=== PATIENT | female | born 1935 | race Caucasian/White ===

== ENCOUNTER 2017-09-25 14:20 | Emergency (ER) | payer MEDICARE ==
[2017-09-25 15:24] LABS: Bilirubin Negative (Negative); Blood, Urine Negative (Negative); Clarity CLEAR (Clear); Glucose, Urine (Dipstick) Negative (Negative); Leukocyte Negative (Negative); Nitrite Negative (Negative); Protein, Urine (Dipstick) Negative (Neg-Trace); Specific Gravity, Urine 1.013 (1.002-1.036); Urobilinogen 0.2 mg/dL (0.2-1.0)
--- NOTE | 2017-09-25 15:53 | RAD ---
PORTABLE CHEST ONE VIEW: 09/25/2017 at 2:47 p.m. HISTORY: Altered mental status. FINDINGS: Comparison is made with the exam of 04/03/2017. The heart size is normal. The aorta is tortuous. The lungs are expanded without focal areas of cons olidation, pneumothorax, lia pleural edema, or pleural effusions. IMPRESSION: No acute process. POS: [facility]
[2017-09-25 16:04] LABS: #Eosinphils 0.1 thou/uL (0.0-0.7); #Lymphocytes 1.8 thou/uL (1.20-3.40); #Monocytes 0.4 thou/uL (0.11-0.59); %Basophils 0.2 % (0.0-1.0); %Eosinophils 1.8 % (0.0-10.0); %Lymphocytes 27.9 % (21.0-51.0); %Neutrophils 63.1 % (42.0-75.0); Hemoglobin 14.2 g/dL (12.0-16.0); Mean Corpuscular HGB CONC 33.6 g/dL (32.0-36.0); Mean Corpuscular Volume 89.4 fl (81.0-99.0); Mean Platelet Volume 8.6 fL (7.4-10.4); Platelet Count 151 thou/uL (130-400); RBC Distribution Width 12.6 % (11.5-14.5); Red Blood Cell (RBC) Count 4.75 mill/uL (4.20-5.40); White Blood Cell (WBC) Count 6.3 thou/uL (4.8-10.8)
[2017-09-25 16:23] LABS: ALT (SGPT) Less than 7 U/L (8-55); AST (SGOT) 14 U/L (5-34); Albumin 4.2 g/dL (3.4-4.8); Alkaline Phosphatase 90 U/L (40-150); Anion Gap 15 mmol/L (10-20); BUN (Urea Nitrogen) 15 mg/dL (9.8-20.1); Bilirubin, Total 0.6 mg/dL (0.2-1.2); CK (CPK) 52 U/L (29-168); Calc. Creatinine Clearance 0 mL/min (70-130); Calcium 10.2 mg/dL (7.8-10.44); Carbon Dioxide 24 mmol/L (23-31); Chloride 106 mmol/L (98-107); Estimated GFR-MDRD 66; Glucose 86 mg/dL (83-110); Lipase 13 U/L (8-78); Potassium 3.4 mmol/L (3.5-5.1); Protein, Total 7.2 g/dL (6.0-8.3); Sodium 142 mmol/L (136-145)
[2017-09-25 16:26] LABS: CKMB 1.1 ng/mL (0-6.6); Troponin I 0.025 ng/mL (< 0.028)
== END 2017-09-25 18:30 | disposition home or self-care (01) ==
LOC: ERS 14:20
DX: R53.83 Other fatigue (principal); I50.9 Heart failure, unspecified; E03.9 Hypothyroidism, unspecified; F41.9 Anxiety disorder, unspecified; G20 Parkinson's disease; Z86.73 Personal history of transient ischemic attack (TIA), and cerebral infarction without residual deficits
CPT/HCPCS: 36415; 71010; 80053; 81003; 82550; 82553; 83690; 83735; 84443; 84484; 85025; 87040; 87086; 93005

== ENCOUNTER 2017-12-03 09:47 | Emergency (ER) | payer MEDICARE ==
[2017-12-03 10:58] LABS: #Basophils 0.1 thou/uL (0.0-0.2); #Eosinphils 0.1 thou/uL (0.0-0.7); #Lymphocytes 1.6 thou/uL (1.20-3.40); #Monocytes 0.5 thou/uL (0.11-0.59); #Neutrophils 6.5 thou/uL (1.40-6.50); %Basophils 0.9 % (0.0-1.0); %Eosinophils 1.5 % (0.0-10.0); %Lymphocytes 17.9 % (21.0-51.0); %Monocytes 5.3 % (0.0-10.0); %Neutrophils 74.5 % (42.0-75.0); Hemoglobin 13.6 g/dL (12.0-16.0); Mean Corpuscular HGB CONC 31.9 g/dL (32.0-36.0); Mean Corpuscular Hemoglobin 27.7 pg (27.0-31.0); Mean Corpuscular Volume 86.9 fl (81.0-99.0); Mean Platelet Volume 10.2 fL (7.4-10.4); Platelet Count 179 thou/uL (130-400); RBC Distribution Width 14.2 % (11.5-14.5); Red Blood Cell (RBC) Count 4.91 mill/uL (4.20-5.40); White Blood Cell (WBC) Count 8.7 thou/uL (4.8-10.8)
[2017-12-03 11:06] LABS: ALT (SGPT) Less than 6 U/L (8-55); AST (SGOT) 13 U/L (5-34); Alkaline Phosphatase 83 U/L (40-150); Anion Gap 14 mmol/L (10-20); BUN (Urea Nitrogen) 23 mg/dL (9.8-20.1); Bilirubin, Total 0.5 mg/dL (0.2-1.2); CK (CPK) 42 U/L (29-168); CKMB 0.8 ng/mL (0-6.6); Calc. Creatinine Clearance 0 mL/min (70-130); Calcium 9.8 mg/dL (7.8-10.44); Carbon Dioxide 28 mmol/L (23-31); Chloride 105 mmol/L (98-107); Estimated GFR-MDRD 49; Glucose 107 mg/dL (83-110); Lipase 14 U/L (8-78); Potassium 4.3 mmol/L (3.5-5.1); Sodium 143 mmol/L (136-145); Troponin I Less than 0.010 ng/mL (< 0.028)
[2017-12-03 11:12] LABS: Bilirubin Negative (Negative); Blood, Urine Large (Negative); Clarity Slightly Cloudy (Clear); Glucose, Urine (Dipstick) Negative (Negative); Leukocyte Moderate (Negative); Nitrite Negative (Negative); Protein, Urine (Dipstick) > or equal to 300 mg/dL (Neg-Trace); Specific Gravity, Urine 1.025 (1.002-1.036)
[2017-12-03 11:13] LABS: WBC/HPF 21-50 HPF (0-3)
[2017-12-03 11:14] LABS: Bacteria/HPF Rare-Few HPF (None Seen); Other Microscopic Description Less than 2 mL rec'd; Squamous Epithelial None Seen HPF (0-3)
[2017-12-03] MEDS ORDERED: cefTRIAXone\\ROCEPHIN 1 GM VIAL ONE (11:29)
[2017-12-03] MEDS ORDERED: Lidocaine 1% PF 5 ML VIAL ONE (11:31)
== END 2017-12-03 12:15 | disposition home or self-care (01) ==
LOC: SCSER 09:47
DX: N39.0 Urinary tract infection, site not specified (principal); E03.9 Hypothyroidism, unspecified; Z86.73 Personal history of transient ischemic attack (TIA), and cerebral infarction without residual deficits; I50.9 Heart failure, unspecified; F41.9 Anxiety disorder, unspecified; Z79.899 Other long term (current) drug therapy
CPT/HCPCS: 36415; 51701; 80053; 81003; 81015; 82550; 82553; 83690; 84484; 85025; 87077; 87086; 87186; 93005; 96372; J0696; J2001

== ENCOUNTER 2018-01-12 15:07 | Outpatient (CLI) | payer MEDICARE ==
--- NOTE | 2018-01-12 17:09 | ULT ---
LEFT LOWER EXTREMITY VENOUS DUPLEX ULTRASOUND INCLUDING COLOR AND SPECTRAL DOPPLER IMAGIN01/12/18 HISTORY: 82-year-old female with history of lower leg edema. Exam performed from groin to ankle including visualized greater saphenous, common femoral, superficia l femoral, profunda femoral, popliteal, trifurcation, and posterior tibial vein regions. There is pha sic flow at all levels with normal compressibility and normal augmentation. No intraluminal thrombus. IMPRESSION: No evidence of deep venous thrombosis. POS: [facility]
== END 2018-01-12 15:08 | disposition home or self-care (01) ==
LOC: ULT 15:07
PROVIDERS: ATTEND Student in an Organized Health Care Education/Training Program
DX: R60.0 Localized edema (principal)

== ENCOUNTER 2018-05-16 16:58 | Observation (INO) | payer MEDICARE ==
[2018-05-16 17:24] LABS: #Basophils 0.1 thou/uL (0.0-0.2); #Eosinphils 0.1 thou/uL (0.0-0.7); #Lymphocytes 1.5 thou/uL (1.20-3.40); #Monocytes 0.3 thou/uL (0.11-0.59); #Neutrophils 3.5 thou/uL (1.40-6.50); %Basophils 0.9 % (0.0-1.0); %Eosinophils 1.5 % (0.0-10.0); %Lymphocytes 27.7 % (21.0-51.0); %Monocytes 5.8 % (0.0-10.0); %Neutrophils 64.1 % (42.0-75.0); Hemoglobin 13.4 g/dL (12.0-16.0); Mean Corpuscular HGB CONC 33.6 g/dL (32.0-36.0); Mean Corpuscular Hemoglobin 29.4 pg (27.0-31.0); Mean Corpuscular Volume 87.6 fL (78.0-98.0); Mean Platelet Volume 8.5 fL (7.4-10.4); Platelet Count 146 thou/uL (130-400); RBC Distribution Width 12.8 % (11.5-14.5); Red Blood Cell (RBC) Count 4.56 mill/uL (4.20-5.40); White Blood Cell (WBC) Count 5.5 thou/uL (4.8-10.8)
[2018-05-16 17:46] LABS: ALT (SGPT) 14 U/L (8-55); AST (SGOT) 17 U/L (5-34); Albumin 4.1 g/dL (3.4-4.8); Alkaline Phosphatase 89 U/L (40-150); Anion Gap 11 mmol/L (10-20); BUN (Urea Nitrogen) 14 mg/dL (9.8-20.1); Bilirubin, Total 0.5 mg/dL (0.2-1.2); CK (CPK) 58 U/L (29-168); Calc. Creatinine Clearance 0 mL/min (70-130); Calcium 9.8 mg/dL (7.8-10.44); Carbon Dioxide 25 mmol/L (23-31); Chloride 109 mmol/L (98-107); Estimated GFR-MDRD 36; Globulin 2.9 g/dL (2.4-3.5); Glucose 99 mg/dL (83-110); Lipase 20 U/L (8-78); Potassium 4.1 mmol/L (3.5-5.1); Sodium 141 mmol/L (136-145)
--- NOTE | 2018-05-16 17:49 | RAD ---
CHEST ONE VIEW: HISTORY: Dyspnea. COMPARISON: Chest radiograph from 09/25/2017. FINDINGS: Some chronic appearing interstitial opacities in both lung bases. The cardiac silhouette and mediast inal contour are within normal limits. No pneumothorax. Scarring on both lung apices. No acute oss eous abnormality. IMPRESSION: Chronic changes. No acute intrathoracic abnormality. POS: [facility]
[2018-05-16 17:50] LABS: CKMB 1.3 ng/mL (0-6.6); Troponin I Less than 0.010 ng/mL (< 0.028)
[2018-05-16 19:19] LABS: Bilirubin Negative (Negative); Blood, Urine Negative (Negative); Clarity CLEAR (Clear); Glucose, Urine (Dipstick) Negative (Negative); Leukocyte Moderate (Negative); Nitrite Negative (Negative); Protein, Urine (Dipstick) Negative (Neg-Trace); Specific Gravity, Urine 1.012 (1.002-1.036); pH, Urine 7.5 (5.0-9.0)
[2018-05-16 19:23] LABS: Bacteria/HPF None Seen HPF (None Seen); Hyaline Casts/LPF 0-3 HYALINE CAST LPF (0-3 Hyaline); Pathc Cast-AUWi Flag 0.72 (0-2.49); RBC/HPF 0-3 HPF (0-3); Squamous Epithelial 0-3 HPF (0-3); WBC/HPF 21-50 HPF (0-3)
[2018-05-16] MEDS ORDERED: hydrALAZINE 20 MG/ML VIAL ONE (19:24)
[2018-05-16] MEDS ORDERED: Nitroglycerin 2% Ointment 1 INCH/1 GM Packet ONE (19:26)
[2018-05-16] MEDS ORDERED: cefTRIAXone\\ROCEPHIN 1 GM VIAL ONE (19:41)
[2018-05-16] MEDS ORDERED: Ondansetron HCl/PF 4 MG/2 ML Vial IVP PRN (20:47)
[2018-05-16] MEDS ORDERED: Ondansetron ODT 4 MG TAB SL PRN (20:47)
[2018-05-16] MEDS ORDERED: hydrALAZINE 20 MG/ML VIAL SLOW IVP PRN (20:47)
[2018-05-16] MEDS ORDERED: Sodium Chloride 0.9% 1,000 ML IV SCH (20:47)
[2018-05-16 20:49] LABS: Troponin I Less than 0.010 ng/mL (< 0.028)
--- NOTE | 2018-05-16 20:53 | CT ---
CT BRAIN WITHOUT CONTRAST: HISTORY: Altered mental status. COMPARISON: CT brain from 03/21/2017. FINDINGS: Advanced microvascular ischemic changes, chronic. Old lacunar infarcts. No acute hemorrhage or infa rct. No midline shift or mass effect. Ventricular size and extraaxial CSF spaces are similar. Mild atrophy. IMPRESSION: No acute intracranial abnormality. POS: [facility]
--- NOTE | 2018-05-16 21:13 | PDOC.FPRHP ---
- History of Present Illness Chief Complaint: SOB History of Present Illness: Ms. Mojica is a 82YO female with a PMH significant for CHF w/ preserved EF, HTN, HLD, & hypothyroidism who presented to the ED with a chief complaint of SOB that she states began around midnight on the day of presentation. She states that it began while she was sitting in her home and is not exacerbated with activity or position change. She states that since it began it has been constant and gotten progressively worse. She denies any associated chest pain, orthopnea, PND, fever, or cough. She did endorse some chills and some swelling in her ankles. Per chart review her last echo was done in 2017 and was significant for grade I diastolic dysfunction with an EF of 50- 55%. Of note, the patient also reported that she could not remember what day it was when she woke up so did not take any of her home medications. However, on further questioning, it was later revealed that it has been 4 days since she took any of her home medications. She was oriented to place and person and knew the year. Did not know the month, date, or day of the week. She also endorsed urinary frequency but denied any dysuria or hematuria. She stated that she has been treated for multiple UTIs on an outpatient basis in the recent past. ED Course: Patient was given one dose of IV hydralazine and nitro paste for hypertensive urgency. In addition, she was given one IV dose of rocephin & started on NS @ 70mL/hr. - Allergies/Adverse Reactions Allergies Allergy/AdvReac Type Severity Reaction Status Date / Time codeine [Codeine] Allergy Mild CHEST PAIN Verified 05/16/18 21:16 - Home Medications Medication Instructions Recorded Confirmed Type Aspirin [Aspir-Low] 81 mg PO QAM 03/22/17 05/16/18 History Calcium Carbonate/Vitamin D3 1 tablet PO QAM 03/22/17 05/16/18 History [Calcium 600 + Vitamin D 400] Carbidopa/Levodopa 1 tablet PO TID 03/22/17 05/16/18 History [Carbidopa/Levodopa ODT] Cholecalciferol (Vitamin D3) 1,000 unit PO QAM 03/22/17 05/16/18 History [Vitamin D3] DULoxetine HCl 60 mg PO QAM 03/22/17 05/16/18 History Levothyroxine Sodium [Synthroid] 112 mcg PO QAM 03/22/17 05/16/18 History Pregabalin [Lyrica] 100 mg PO TID 03/22/17 05/16/18 History Pramipexole Di-HCl [Pramipexole 0.5 mg PO TID 07/29/17 05/16/18 History Dihydrochloride] Pravastatin Sodium 40 mg PO HS 07/29/17 05/16/18 History Lisinopril [Zestril] 10 mg PO DAILY tab 08/01/17 05/16/18 Rx Furosemide 20 mg PO DAILY 05/16/18 05/16/18 History Nystatin [Nystatin Powder] 1 applic TOP BID 05/16/18 05/16/18 History - History PMHx: CHF w/ preserved EF, HTN, HLD, parkinson's, hypothyroidism, restless leg syndrome, anxiety, h/o CVA 20 years ago PSHx: allegra, hysterectomy FHx: None Social: Lives at home alone. No tobacco, EtOH, or drug use. - Review of Systems General: reports: fever/chills (+ for chills). denies: weight/appetite/sleep changes Eyes: denies: vision changes ENT: reports: rhinorrhea Respiratory: reports: shortness of breath. denies: cough Cardiovascular: reports: edema. denies: chest pain, palpitation, paroxysmal nocturnal dyspnea, orthopnea Gastrointestinal: denies: nausea, vomiting, diarrhea, constipation, abdominal pain Genitourinary: reports: other (+ frequency, - hematuria). denies: dysuria Skin: reports: itching. denies: rashes Musculoskeletal: reports: swelling. denies: pain, arthritis/arthralgias Neurological: denies: numbness, syncope, weakness Psychological: reports: anxiety - Vital signs BP: 188/108 HR: 58 RR: 18 Tmax: 97.7F Pox: 96% on 2L via nasal canula Wt: 74kg - Physical Exam Constitutional: NAD, awake, alert and oriented, well developed HEENT: normocephalic and atraumatic, PERRLA, conjunctiva clear, grossly normal vision, grossly normal hearing, oropharynx clear Neck: FROM, no LAD Heart: RRR, normal S1/S2, no murmurs/rubs/gallops, pulses present, no edema Lungs: CTAB, no respiratory distress, good air movement, no rales/rhonchi, no wheezing Abdomen: soft, bowel sounds present, no masses/distention, other (+ for suprapubic tenderness) Musculoskeletal: normal structure, ROM grossly normal Neurological: no focal deficit, CN II-XII intact, normal sensation Skin: no rash/lesions, good turgor, no jaundice Heme/Lymphatic: no unusual bruising or bleeding, no purpura Psychiatric: other (anxious affect with mild impairment in recent and remote memory) FMR H&P: Results - Labs Result Diagrams: 05/16/18 17:15 05/17/18 03:42 Lab results: WBC 5.5 thou/uL (4.8-10.8) 05/16/18 17:15 Hgb 13.4 g/dL (12.0-16.0) 05/16/18 17:15 Hct 39.9 % (36.0-47.0) 05/16/18 17:15 MCV 87.6 fL (78.0-98.0) 05/16/18 17:15 Plt Count 146 thou/uL (130-400) 05/16/18 17:15 Neutrophils % 64.1 % (42.0-75.0) 05/16/18 17:15 Sodium 141 mmol/L (136-145) 05/16/18 17:15 Potassium 4.1 mmol/L (3.5-5.1) 05/16/18 17:15 Chloride 109 mmol/L (98-107) H 05/16/18 17:15 Carbon Dioxide 25 mmol/L (23-31) 05/16/18 17:15 BUN 14 mg/dL (9.8-20.1) 05/16/18 17:15 Creatinine 1.41 mg/dL (0.6-1.1) H 05/16/18 17:15 Glucose 99 mg/dL (83-110) 05/16/18 17:15 Calcium 9.8 mg/dL (7.8-10.44) 05/16/18 17:15 Total Bilirubin 0.5 mg/dL (0.2-1.2) 05/16/18 17:15 AST 17 U/L (5-34) 05/16/18 17:15 ALT 14 U/L (8-55) 05/16/18 17:15 Alkaline Phosphatase 89 U/L (40-150) 05/16/18 17:15 Creatine Kinase 58 U/L (29-168) 05/16/18 17:15 CK-MB (CK-2) 1.3 ng/mL (0-6.6) 05/16/18 17:15 B-Natriuretic Peptide 93.8 pg/mL (0-100) 05/16/18 17:15 Serum Total Protein 7.0 g/dL (6.0-8.3) 05/16/18 17:15 Albumin 4.1 g/dL (3.4-4.8) 05/16/18 17:15 Lipase 20 U/L (8-78) 05/16/18 17:15 Urine Ketones Negative mg/dL (Negative) 05/16/18 19:00 Urine Blood Negative (Negative) 05/16/18 19:00 Urine Nitrite Negative (Negative) 05/16/18 19:00 Ur Leukocyte Esterase Moderate (Negative) H 05/16/18 19:00 Urine RBC 0-3 HPF (0-3) 05/16/18 19:00 Urine WBC 21-50 HPF (0-3) H 05/16/18 19:00 Ur Squamous Epith Cells 0-3 HPF (0-3) 05/16/18 19:00 Urine Bacteria None Seen HPF (None Seen) 05/16/18 19:00 - EKG Interpretation EKG: NSR - Radiology Interpretation Chest x-ray Status: report reviewed by me (WNL) CT scan - head Status: report reviewed by me (No acute changes) FMR H&P: A/P - Problem List (1) Hypertensive urgency Current Visit: Yes Status: Acute Code(s): I16.0 - HYPERTENSIVE URGENCY (2) Urinary tract infection Current Visit: Yes Status: Acute (3) ZORAIDA (acute kidney injury) Current Visit: Yes Status: Acute Code(s): N17.9 - ACUTE KIDNEY FAILURE, UNSPECIFIED (4) Hypertension Current Visit: Yes Status: Chronic Code(s): I10 - ESSENTIAL (PRIMARY) HYPERTENSION (5) Hyperlipidemia Current Visit: Yes Status: Chronic Code(s): E78.5 - HYPERLIPIDEMIA, UNSPECIFIED (6) Diastolic congestive heart failure Current Visit: No Status: Acute Code(s): I50.30 - UNSPECIFIED DIASTOLIC ( CONGESTIVE) HEART FAILURE (7) Hypothyroid Current Visit: Yes Status: Chronic Code(s): E03.9 - HYPOTHYROIDISM, UNSPECIFIED Qualifiers: Hypothyroidism type: acquired Qualified Code(s): E03.9 - Hypothyroidism, unspecified (8) Parkinson disease Current Visit: Yes Status: Chronic Code(s): G20 - PARKINSON'S DISEASE (9) Restless leg syndrome Current Visit: Yes Status: Chronic (10) Anxiety Current Visit: Yes Status: Chronic Code(s): F41.9 - ANXIETY DISORDER, UNSPECIFIED - Plan 82YOF w/ a PMH significant for CHF w/ preserved EF, HTN, HLD, and hypothyroidism who presented to the ED with a chief complaint of progressively worsening SOB x 1 day. 1. Hypertensive Urgency: - BP was 188/108 on presentation. Likely 2/2 medication noncompliance per history. - Patient was given 10mg IV hydralazine in the ED and a dose of topical nitropaste & responded nicely. - Will continue to monitor BPs and resume home medications for BP control. Will also continue hydralazine PRN. 2. General deconditioning: - Patient states that she is mobile at home but per chart review has a history of deconditioning and falls. Could likely explain her SOB with exertion. - PT consult ordered. Will await their recs. 3. ZORAIDA: - BUN/Cr 14/1.41 on presentation. - Will continue with gentle IVFs with NS @ 70mL/hr. 4. UTI: - UA not impressive with mod leukocyte esterase & 21-50 WBCs. However, patient did complain of frequency & had suprapubic tenderness on exam. - Got one dose of rocephin in the ED. Will continue & adjust Abx as needed pending Cx results. 5. CHF w/ preserved EF: - Aware. Does not appear to be in acute exacerbation. BNP 93.8. Satting well on RA & CXR negative for effusions. - Will resume home meds. 6. Hypothyroidism: - Aware. Will resume home meds. - Will check a TSH to determine compliance as this could also be contributing to her confusion. 7. Parkinson's disease: - Aware, will resume home meds. 8. HTN: - See problem #1. 9. HLD: - Will resume home meds. 10. Anxiety: - Will resume home meds. 11. Restless leg syndrome: - Will resume home meds. 12. h/o CVA: - Aware, will resume home meds. FMR H&P: Upper Level - Pertinent history Patient is an 82 year old female who presents to the ED with a chief complaint of shortness of breath since midnight. Occurred at rest. She denies any change in activity of provoking factors. She denies chest pain, cough, or decrease in exercise tolerance. She has a history of diastolic heart failure (Last echo clinic chart - EF 50-55% with Grade 1 diastolic dysfunction). She reports peripheral edema.Pt had relatively negative workup in ED, however as they were preparing to discharge her from the ED, pt apparently had difficulty walking and "became" confused, so admission was recommended. On further questioning of the patient, she does report being more confused lately and has not taken her medications in at least four days. - Pertinent findings Vitals: BP 172/101 P: 62 RR: 20 SpO2: 100% on RA Physical Exam: General: alert and oriented to person, place and time. No apparent distress. Blunted affect. Heart: regular rate and rhythm, no murmurs, rubs, or gallops. Lungs. Clear to auscultation bilaterally. Extremities: moves all extremites well; normal bulk and tone. BNP - 93.8 CKMB - 1.3, Trop < 0.01 CK: 58 Lipase: 20 BUN: 14: Cr: 1.41 D-dimer: 0.36 CT brain: no acute intracranial abnormality. CXR: no acute cardiopulmonary abnormality. - Plan Date/Time: 05/16/182104 IPriya, have evaluated this patient and agree with findings/plan as outlined by commercial internship resident. Pertinent changes/additions are listed here. Hypertensive urgency - patient admitted to telemetry for observation. - Blood pressure has improved with dose of hydralazine given in ED. - will resume patient's home antihypertensive. - Otherwise, no need for acute reductions in blood pressure at this time. Dyspnea - uncertain etiology, possibly related to flash pulmonary edema vs. deconditioning vs. decompensated heart failure. - CXR negative. - will repeat echo. - will order PT for evaluation of pt's functional status. She may need PT at home. Acute Encephalopathy - possibly secondary to urinary tract infection given suprapubic tenderness on exam. Will obtain urine culture. Heart failure with preserved ejection fraction - continue home medication. - will repeat Echo Parkinson's Disease - Resume home medications. Restless leg syndrome - resume home medications Hypothyroidism - will check TSH, and resume home meds. Hyperlipidemia - resume home meds. DVT prophylaxis: SCDs
[2018-05-16 21:18] VITALS: BMI 28.9
[2018-05-16] MEDS ORDERED: Hydrocortisone 1% Cream 1.5 GM Packet TOP PRN (21:52)
--- NOTE | 2018-05-16 23:31 | PDOC.EVN ---
Event Note - Event Note Event Note: 82 yo WF with h/o Parkinson's, HTN, HLD, hypothyroidism, HFrEF presented with c/ o SOB x 1 day. Patient states taht she has felt confused and disoirented for last several days and then developed SOB today. Denies any fever, CP, cough,. (+ ) urinary frequency. Denies any dysuria. IN ER noted to have elevated BP. ( Patient reports that she has not taken her medications for last 3-4 days per nurse). PMH/PSH/Meds/All/SH reviewed and agree with resident's documentation. Afebrile BP 176/78 P69 RR20 O2 96% 2LNC. Exam repeated by me and agree with resident's documentation. Labs: H/H 13.4/39.9 Cr=1.41 trop I<0.010 x2, U/A moderate LE; 21-[address] brain- no acute findings, CXR- no acute changes. A/P : 1) SOB- now resolved with normal O2 saturations. 2) Pyuria- patient reports h/ o UTIs. Urine culture sent; will review office history/labs. 3) Hypertensive urgency - patient had not taken meds for last 3-4 days; resume home meds and will evaluate social situation.
[2018-05-16] MEDS ORDERED: Melatonin 3 MG TAB PO PRN (23:59)
[2018-05-17] MEDS ORDERED: Doxepin HCl 10 MG CAP PO PRN (00:01)
[2018-05-17 00:10] LABS: Troponin I Less than 0.010 ng/mL (< 0.028)
[2018-05-17] MEDS ORDERED: Nystatin Powder 15 GM BOT TOP PRN (00:49)
[2018-05-17 04:47] LABS: Anion Gap 14 mmol/L (10-20); BUN (Urea Nitrogen) 12 mg/dL (9.8-20.1); Calc. Creatinine Clearance 56 mL/min (70-130); Carbon Dioxide 23 mmol/L (23-31); Chloride 110 mmol/L (98-107); Estimated GFR-MDRD 61; Glucose 100 mg/dL (83-110); Potassium 3.6 mmol/L (3.5-5.1); Sodium 143 mmol/L (136-145)
[2018-05-17] MEDS ORDERED: Levothyroxine Sodium 112 MCG TAB PO SCH (06:00)
[2018-05-17] MEDS: DULoxetine 60 MG CAP PO SCH (09:06)
[2018-05-17] MEDS: Calcium Carbonate + Vit D 1 TAB PO SCH (09:06)
[2018-05-17] MEDS: Aspirin 81 mg Enteric Coated Tablet PO SCH (09:06)
[2018-05-17] MEDS: Carbidopa/Levodopa 25-100 mg Tablet PO SCH ×3 (09:06→21:01)
[2018-05-17] MEDS: Pramipexole Di-HCl 0.25 MG TAB PO SCH ×3 (09:07→21:01)
[2018-05-17] MEDS: Lisinopril 10 MG TAB PO SCH (09:07)
[2018-05-17] MEDS: Furosemide 20 MG TAB PO SCH (09:07)
[2018-05-17] MEDS: Pregabalin 50 MG CAP PO SCH ×3 (09:07→21:00)
[2018-05-17] MEDS ORDERED: Ondansetron ODT 4 MG TAB SL PRN (13:24)
--- NOTE | 2018-05-17 13:25 | PDOC.FM ---
- Subjective Subjective: States that she feels weak overall and short of breath. Also states that she feels short of breath most of the time with small tasks of cooking and walking from room to room. States that her daughter upset her and made her very anxious which then made her more short of breath and prompted her visit to the ER. - Objective Vital Signs & Weight: Vital Signs (12 hours) Temp Pulse Resp BP BP Pulse Ox 05/17/18 11:31 98.6 F 77 18 146/71 H 92 L 05/17/18 07:35 97.7 F 73 18 151/72 H 94 L 05/17/18 04:00 97.8 F 82 20 144/71 H 93 L Weight Weight 74.026 kg Result Diagrams: 05/16/18 17:15 05/17/18 03:42 <Ann-Marie Henry - Last Filed: 05/17/18 20:48> - Objective Vital Signs & Weight: Vital Signs (12 hours) Temp Pulse Pulse Pulse Resp BP BP 05/17/18 19:31 98.3 F 70 20 05/17/18 15:17 98 F 80 18 124/66 05/17/18 14:04 81 83 127/67 05/17/18 11:31 98.6 F 77 18 146/71 H BP BP Pulse Ox Pulse Ox Pulse Ox 05/17/18 19:31 110/60 94 L 05/17/18 15:17 92 L 05/17/18 14:04 133/69 96 98 05/17/18 11:31 92 L Weight Weight 74.026 kg I&O: 05/16/18 05/17/18 05/18/18 06:59 06:59 06:59 Intake Total 450 Balance 450 Result Diagrams: 05/16/18 17:15 05/17/18 03:42 <Juanis Staples - Last Filed: 05/17/18 20:54> Phys Exam - Physical Examination Constitutional: NAD Respiratory: no wheezing, no rales, clear to auscultation bilateral Cardiovascular: RRR, no significant murmur Gastrointestinal: soft, non-tender Musculoskeletal: no edema, pulses present Neurological: non-focal, normal sensation Psychiatric: normal affect, A&O x 3 Skin: no rash <Ann-Marie Henry - Last Filed: 05/17/18 20:48> Dx/Plan (1) ZORAIDA (acute kidney injury) Code(s): N17.9 - ACUTE KIDNEY FAILURE, UNSPECIFIED Status: Acute (2) Hypertensive urgency Code(s): I16.0 - HYPERTENSIVE URGENCY Status: Acute (3) Urinary tract infection Status: Acute (4) Anxiety Code(s): F41.9 - ANXIETY DISORDER, UNSPECIFIED Status: Chronic (5) GERD (gastroesophageal reflux disease) Code(s): K21.9 - GASTRO-ESOPHAGEAL REFLUX DISEASE WITHOUT ESOPHAGITIS Status: Chronic (6) Hyperlipidemia Code(s): E78.5 - HYPERLIPIDEMIA, UNSPECIFIED Status: Chronic (7) Hypertension Code(s): I10 - ESSENTIAL (PRIMARY) HYPERTENSION Status: Chronic (8) Hypothyroid Code(s): E03.9 - HYPOTHYROIDISM, UNSPECIFIED Status: Chronic Qualifiers: Hypothyroidism type: acquired Qualified Code(s): E03.9 - Hypothyroidism, unspecified (9) Parkinson disease Code(s): G20 - PARKINSON'S DISEASE Status: Chronic (10) Diastolic congestive heart failure Code(s): I50.30 - UNSPECIFIED DIASTOLIC (CONGESTIVE) HEART FAILURE Status: Acute (11) Nausea & vomiting Code(s): R11.2 - NAUSEA WITH VOMITING, UNSPECIFIED Status: Acute - Plan Plan: 82YOF w/ a PMH significant for CHF w/ preserved EF, HTN, HLD, and hypothyroidism who presented to the ED with a chief complaint of progressively worsening SOB x 1 day. 1. Hypertensive Urgency, resolved - Likely 2/2 medication noncompliance per history. - Continue to monitor 2. General deconditioning: - PT consult ordered. Will await their recs. 3. ZORAIDA: - Resolved with fluids 4. UTI: - Got one dose of rocephin in the ED. Will provide abx for 3 days for uncomplicated uti. 5. CHF w/ preserved EF: - Does not appear to be in acute exacerbation. - Will resume home meds. 6. Hypothyroidism: -Elevated TSH. -Will increase synthroid. 7. Parkinson's disease: - Aware, will resume home meds. 8. HTN: -continue to monitor. 9. HLD: - Will resume home meds. 10. Anxiety: - Will resume home meds. 11. Restless leg syndrome: - Will resume home meds. 12. h/o CVA: - Aware, will resume home meds. <Ann-Marie Henry - Last Filed: 05/17/18 20:48> Attending Addendum - Attending Addendum Date/Time: 05/17/182052 I personally evaluated the patient and discussed the management with Dr. Lantigua I agree with the History, Examination, Assessment and Plan documented above with any addition or exceptions noted below. 82 y/o WF presents with generalized weakness, hypertensive urgency, ZORAIDA, UTI and anxiety/depression. Will continue IV abx, IVf, BP meds and PT consult. Expect d/c tomorrow. <Juanis Staples - Last Filed: 05/17/18 20:54>
[2018-05-17] MEDS ORDERED: cefTRIAXone\\ROCEPHIN 1 GM in Sodium Chloride 0.9% 100 ML IVPB SCH (20:00)
[2018-05-17] MEDS ORDERED: Sodium Chloride 0.9% 20 ML ONE (20:21)
[2018-05-17] MEDS ORDERED: Atorvastatin Calcium 10 MG TAB PO SCH (21:00)
[2018-05-18] MEDS ORDERED: Acetaminophen 325 MG TAB PO PRN (00:06)
[2018-05-18] MEDS ORDERED: Levothyroxine Sodium 125 MCG TAB PO SCH (06:00)
[2018-05-18 06:13] LABS: Anion Gap 14 mmol/L (10-20); BUN (Urea Nitrogen) 15 mg/dL (9.8-20.1); Calc. Creatinine Clearance 55 mL/min (70-130); Calcium 9.3 mg/dL (7.8-10.44); Carbon Dioxide 23 mmol/L (23-31); Chloride 106 mmol/L (98-107); Estimated GFR-MDRD 61; Glucose 99 mg/dL (83-110); Potassium 3.7 mmol/L (3.5-5.1); Sodium 139 mmol/L (136-145)
--- NOTE | 2018-05-18 06:47 | PDOC.FM ---
- Subjective Subjective: Denies any nausea or vomiting today. Feels well. PT recommended walking program and HH PT. Tolerating breakfast this am. Resting in chair comfortably. - Objective MAR Reviewed: Yes Vital Signs & Weight: Vital Signs (12 hours) Temp Pulse Resp BP BP Pulse Ox 05/18/18 04:00 98.3 F 63 16 136/65 97 05/17/18 23:56 98.5 F 71 16 139/69 93 L 05/17/18 21:01 98.3 F 70 20 05/17/18 19:31 98.3 F 70 20 110/60 94 L Weight Weight 73.709 kg I&O: 05/16/18 05/17/18 05/18/18 06:59 06:59 06:59 Intake Total 860 Output Total 300 Balance 560 Result Diagrams: 05/16/18 17:15 05/18/18 05:04 <Ann-Marie Henry - Last Filed: 05/18/18 09:11> - Objective Vital Signs & Weight: Vital Signs (12 hours) Temp Pulse Resp BP BP Pulse Ox 05/18/18 11:36 97.9 F 71 16 144/75 H 93 L 05/18/18 08:38 165/79 H 05/18/18 07:22 98.4 F 65 16 165/79 H 95 05/18/18 04:00 98.3 F 63 16 136/65 97 Weight Weight 73.709 kg I&O: 05/17/18 05/18/18 05/19/18 06:59 06:59 06:59 Intake Total 860 Output Total 300 Balance 560 Result Diagrams: 05/16/18 17:15 05/18/18 05:04 <Juanis Staples - Last Filed: 05/18/18 15:08> Phys Exam - Physical Examination Constitutional: NAD HEENT: PERRLA, moist MMs Respiratory: no wheezing, no rales, clear to auscultation bilateral Cardiovascular: RRR, no significant murmur Gastrointestinal: soft, non-tender, no distention, positive bowel sounds Psychiatric: normal affect, A&O x 3 <Ann-Marie Henry - Last Filed: 05/18/18 09:11> Dx/Plan (1) ZORAIDA (acute kidney injury) Code(s): N17.9 - ACUTE KIDNEY FAILURE, UNSPECIFIED Status: Acute (2) Hypertensive urgency Code(s): I16.0 - HYPERTENSIVE URGENCY Status: Acute (3) Urinary tract infection Status: Acute (4) Anxiety Code(s): F41.9 - ANXIETY DISORDER, UNSPECIFIED Status: Chronic (5) GERD (gastroesophageal reflux disease) Code(s): K21.9 - GASTRO-ESOPHAGEAL REFLUX DISEASE WITHOUT ESOPHAGITIS Status: Chronic (6) Hyperlipidemia Code(s): E78.5 - HYPERLIPIDEMIA, UNSPECIFIED Status: Chronic (7) Hypertension Code(s): I10 - ESSENTIAL (PRIMARY) HYPERTENSION Status: Chronic (8) Hypothyroid Code(s): E03.9 - HYPOTHYROIDISM, UNSPECIFIED Status: Chronic Qualifiers: Hypothyroidism type: acquired Qualified Code(s): E03.9 - Hypothyroidism, unspecified (9) Parkinson disease Code(s): G20 - PARKINSON'S DISEASE Status: Chronic (10) Diastolic congestive heart failure Code(s): I50.30 - UNSPECIFIED DIASTOLIC (CONGESTIVE) HEART FAILURE Status: Acute (11) Nausea & vomiting Code(s): R11.2 - NAUSEA WITH VOMITING, UNSPECIFIED Status: Acute - Plan Plan: 82YOF w/ a PMH significant for CHF w/ preserved EF, HTN, HLD, and hypothyroidism who presented to the ED with a chief complaint of progressively worsening SOB x 1 day. 1. Hypertensive Urgency, resolved - Likely 2/2 medication noncompliance per history. - Continue to monitor 2. General deconditioning - PT recommends PT 3. ZORAIDA: - Resolved with fluids 4. UTI: - Got one dose of rocephin in the ED. Will provide abx for 3 days for uncomplicated uti but urine cx shows no growth to date -bactrim and cipro resistant from clinic chart. 5. CHF w/ preserved EF: - Does not appear to be in acute exacerbation. - Will resume home meds. 6. Hypothyroidism: -Elevated TSH. -Will increase synthroid. 7. Parkinson's disease: - Aware, will resume home meds. 8. HTN: -continue to monitor. 9. HLD: - Will resume home meds. 10. Anxiety: - Will resume home meds. 11. Restless leg syndrome: - Will resume home meds. 12. h/o CVA: - Aware, will resume home meds. Dispo: ready for dc <Carl,Ann-Marie - Last Filed: 05/18/18 09:11> Attending Addendum - Attending Addendum Date/Time: 05/18/18 5950 I personally evaluated the patient and discussed the management with Dr. Lantigua. I agree with the History, Examination, Assessment and Plan documented above with any addition or exceptions noted below. Ready for discharge. <Juanis Staples - Last Filed: 05/18/18 15:08>
[2018-05-18] MEDS: DULoxetine 60 MG CAP PO SCH (08:38)
[2018-05-18] MEDS: Calcium Carbonate + Vit D 1 TAB PO SCH (08:38)
[2018-05-18] MEDS: Aspirin 81 mg Enteric Coated Tablet PO SCH (08:38)
[2018-05-18] MEDS: Pramipexole Di-HCl 0.25 MG TAB PO SCH (08:38)
[2018-05-18] MEDS: Furosemide 20 MG TAB PO SCH (08:38)
[2018-05-18] MEDS: Lisinopril 10 MG TAB PO SCH (08:38)
[2018-05-18] MEDS: Carbidopa/Levodopa 25-100 mg Tablet PO SCH (08:39)
[2018-05-18] MEDS: Pregabalin 50 MG CAP PO SCH (08:39)
[2018-05-18 11:41] VITALS: BP 144/75; TEMP 97.9
== END 2018-05-18 12:50 | disposition home or self-care (01) ==
LOC: ERS 16:58 → 2NO 20:45
PROVIDERS: ADMIT Family Medicine; ATTEND Family Medicine
DX: R06.02 Shortness of breath (principal); I16.0 Hypertensive urgency; I11.0 Hypertensive heart disease with heart failure; I50.30 Unspecified diastolic (congestive) heart failure; E78.5 Hyperlipidemia, unspecified; E03.9 Hypothyroidism, unspecified; G25.81 Restless legs syndrome; F41.9 Anxiety disorder, unspecified; G20 Parkinson's disease; N39.0 Urinary tract infection, site not specified; N17.9 Acute kidney failure, unspecified; G93.40 Encephalopathy, unspecified; Z86.73 Personal history of transient ischemic attack (TIA), and cerebral infarction without residual deficits; Z79.82 Long term (current) use of aspirin; Z79.899 Other long term (current) drug therapy; Z88.5 Allergy status to narcotic agent
CPT/HCPCS: 70450; 71045; 80048 ×2; 80053; 82550; 82553; 83690; 83880; 84443; 84484 ×2; 85025; 85379; 87086; 93005; 93306; 94760; 96361 ×2; 96365; 96366; 96375; 97116; 97139 ×2; 99285; G0378 ×2; G8978; G8979; G8980; 36415; 81003; 81015; A4216; J0360; J0696; J7050

== ENCOUNTER 2018-05-27 10:32 | Outpatient (CLI) | payer MEDICARE | END 2018-05-27 10:33 | disposition home or self-care (01) | LOC: BICMAMMO 10:32 | PROVIDERS: ATTEND Family Medicine | DX: Z13.820 Encounter for screening for osteoporosis (principal); M85.88 Other specified disorders of bone density and structure, other site | CPT/HCPCS: 77080 ==

== ENCOUNTER 2018-06-10 10:22 | Observation (INO) | payer MEDICARE ==
[2018-06-10 10:56] LABS: #Eosinphils 0.1 thou/uL (0.0-0.7); #Lymphocytes 1.3 thou/uL (1.20-3.40); #Monocytes 0.4 thou/uL (0.11-0.59); #Neutrophils 3.7 thou/uL (1.40-6.50); %Basophils 0.3 % (0.0-1.0); %Lymphocytes 23.1 % (21.0-51.0); %Neutrophils 67.6 % (42.0-75.0); Hemoglobin 13.1 g/dL (12.0-16.0); Mean Corpuscular HGB CONC 32.6 g/dL (32.0-36.0); Mean Corpuscular Hemoglobin 28.8 pg (27.0-31.0); Mean Corpuscular Volume 88.4 fL (78.0-98.0); Mean Platelet Volume 8.7 fL (7.4-10.4); Platelet Count 142 thou/uL (130-400); RBC Distribution Width 13.3 % (11.5-14.5); Red Blood Cell (RBC) Count 4.56 mill/uL (4.20-5.40); White Blood Cell (WBC) Count 5.5 thou/uL (4.8-10.8)
[2018-06-10 11:19] LABS: ALT (SGPT) Less than 7 U/L (8-55); AST (SGOT) 17 U/L (5-34); Albumin 4.2 g/dL (3.4-4.8); Alkaline Phosphatase 91 U/L (40-150); Anion Gap 12 mmol/L (10-20); BUN (Urea Nitrogen) 5 mg/dL (9.8-20.1); Bilirubin, Total 0.7 mg/dL (0.2-1.2); Calc. Creatinine Clearance 0 mL/min (70-130); Calcium 9.2 mg/dL (7.8-10.44); Carbon Dioxide 29 mmol/L (23-31); Chloride 104 mmol/L (98-107); Estimated GFR-MDRD 50; Globulin 2.7 g/dL (2.4-3.5); Glucose 103 mg/dL (83-110); Potassium 3.8 mmol/L (3.5-5.1); Protein, Total 6.9 g/dL (6.0-8.3); Sodium 141 mmol/L (136-145)
[2018-06-10 11:22] LABS: CKMB 1.5 ng/mL (0-6.6); Troponin I Less than 0.010 ng/mL (< 0.028)
--- NOTE | 2018-06-10 11:24 | RAD ---
SINGLE VIEW CHEST: HISTORY: Altered mental status and weakness. COMPARISON: 05/16/2018 FINDINGS: Single view of the chest show normal sized cardiomediastinal silhouette. There is no evidence of cons olidation, mass, or pleural effusion. The bones are unremarkable. IMPRESSION: No evidence of acute cardiopulmonary disease. POS: [facility]
[2018-06-10 11:42] LABS: Bilirubin Negative (Negative); Blood, Urine Negative (Negative); Clarity CLEAR (Clear); Glucose, Urine (Dipstick) Negative (Negative); Leukocyte Negative (Negative); Nitrite Negative (Negative); Protein, Urine (Dipstick) Negative (Neg-Trace); Specific Gravity, Urine 1.008 (1.002-1.036); Urobilinogen 0.2 mg/dL (0.2-1.0)
--- NOTE | 2018-06-10 11:46 | CT ---
CT BRAIN WITHOUT CONTRAST: HISTORY: Altered mental status. COMPARISON: 05/16/2018 TECHNIQUE: Multiple contiguous axial images were obtained in a CT of the brain without contrast. FINDINGS: There are scattered hypodensities in the subcortical and periventricular white matter, likely seconda ry to small vessel ischemic disease. No large confluent infarction is seen. There is no evidence of hydrocephalus, intracranial hemorrhage, or extraaxial fluid collection. The calvarium and overlying soft tissues are unremarkable. The visualized paranasal sinuses and mast oid air cells are well aerated. IMPRESSION: 1. No evidence of acute intracranial abnormality. 2. Stable small vessel ischemic disease. POS: [facility]
--- NOTE | 2018-06-10 13:09 | RAD ---
SINGLE VIEW OF PELVIS: Date: 06/10/18 COMPARISON: None. HISTORY: Unable to stand and ambulate. Pelvic pain. FINDINGS: Single view of the pelvis shows no evidence of acute fracture or dislocation. No degenerative change is seen in either hip. IMPRESSION: No evidence of acute osseous abnormality. POS: [facility]
--- NOTE | 2018-06-10 14:20 | PDOC.FPRHP ---
- History of Present Illness Chief Complaint: new-onset bowel incontinence, generalized weakness History of Present Illness: 83 yo F with PMH of Parkinson's disease, HFpEF, HTN, and hypothyroidism here for generalized weakness for one day and new onset bowel incontinence today. She is here with 2 of her daughters. Patient states that she woke up this morning and had bowel and bladder incontinence. She normally has bladder incontinence, but this was the first time she had incontinence of stool. She denied any diarrhea or constipation. After she was cleaned up, she felt weak all over. Her daughter had to help her to get back into her bed. She states she can ambulate by herself with her walker, but daughter stated that yesterday she almost fell while trying to ambulate. Patient had a recent admission 1 month ago for UTI and weakness. Patient states she just started taking her levothyroxine a few days ago, has not been taking it since last admission. Today she complains of edema in her legs, SOB, and daughters report exercise in tolerance. ROS positive for fatigue, palpitations, rash on her bottom, anxiety and depression, and occasional back pain. In the ED she was satting 92% on RA, CXR, pelvic XR, and CT head negative. UA negative. EKG neg. Daughters say she has been declining the past 2-3 months, she is burning food in the kitchn and they are afraid to leave her alone. One of her daughters has been spending a lot of time at the house. - Allergies/Adverse Reactions Allergies Allergy/AdvReac Type Severity Reaction Status Date / Time codeine [Codeine] Allergy Mild CHEST PAIN Verified 05/16/18 21:16 - Home Medications Medication Instructions Recorded Confirmed Type Calcium Carbonate/Vitamin D3 1 tablet PO QAM 03/22/17 05/16/18 History [Calcium 600 + Vitamin D 400] Carbidopa/Levodopa 1 tablet PO TID 03/22/17 05/16/18 History [Carbidopa/Levodopa ODT] Cholecalciferol (Vitamin D3) 1,000 unit PO QAM 03/22/17 05/16/18 History [Vitamin D3] Pregabalin [Lyrica] 100 mg PO TID 03/22/17 05/16/18 History Pramipexole Di-HCl [Pramipexole 0.5 mg PO TID 07/29/17 05/16/18 History Dihydrochloride] Pravastatin Sodium 40 mg PO HS 07/29/17 05/16/18 History Lisinopril [Zestril] 10 mg PO DAILY tab 08/01/17 05/16/18 Rx Furosemide 20 mg PO DAILY 05/16/18 05/16/18 History Nystatin [Nystatin Powder] 1 applic TOP BID 05/16/18 05/16/18 History Levothyroxine Sodium [Synthroid] 125 mcg PO 0600 #30 tab 05/17/18 Rx Melatonin 3 mg PO HS PRN tab 05/17/18 Rx DULoxetine [Cymbalta] 60 mg PO DAILY cap 06/10/18 Rx - History PMHx: Parkinson's, hypothyroidis, HTN, HLD GERD, Anxiety, Depression, HFpEF, RLS , h/o CVD 20 yeras ago PSHx: cholecystectomy, hysterectomy FHx: Denied DM, father of pancreatic cancer at 67yrs Social: Denies t/a/d. Lives at home alone, has daughter come help with her care. - Review of Systems General: reports: fatigue. denies: fever/chills, weight/appetite/sleep changes Eyes: reports: vision changes. denies: eye pain Respiratory: reports: shortness of breath, exercise intolerance. denies: cough , congestion Cardiovascular: reports: palpitation, edema. denies: chest pain Gastrointestinal: denies: nausea, vomiting, diarrhea, constipation, abdominal pain, GI bleeding Genitourinary: reports: incontinence, other (new onset bowel incontinence). denies: dysuria Skin: reports: rashes, other (no changing moles) Musculoskeletal: reports: pain (occasional back pain while ambulating), arthritis/arthralgias (arthritis of back) Neurological: reports: weakness (diffuse). denies: numbness Psychological: reports: anxiety, depression - Vital signs BP: 157/76, P 64, R 18, T 97.8, O2 98% on 2L BNC , wt 75 kg - Physical Exam Constitutional: NAD, awake, alert and oriented HEENT: normocephalic and atraumatic, PERRLA, conjunctiva clear, MMM, oropharynx clear Neck: supple, other (+LAD, +JVD distension) Heart: RRR, normal S1/S2, no murmurs/rubs/gallops, pulses present, other (1+ pitting edema up to knees bilaterally) Lungs: other (diffuse crackles) Abdomen: soft, non-tender, bowel sounds present, no masses/distention Musculoskeletal: normal structure, normal tone Neurological: no focal deficit, CN II-XII intact, normal sensation Skin: good turgor, capillary refill <2 seconds, no jaundice Psychiatric: normal mood and affect, intact recent and remote memory -Psychiatric: Patient denies feeling depressed, on duloxetine currently. Denies SI/HI. Does admit to decreased energy, occasional trouble concentrating, moving more slowly than normal (may be due to the parkinson's), feelings of hopelessness/ helplessness, and decreased interest FMR H&P: Results - Labs Result Diagrams: 06/10/18 10:43 06/10/18 10:43 Lab results: WBC 5.5 thou/uL (4.8-10.8) 06/10/18 10:43 Hgb 13.1 g/dL (12.0-16.0) 06/10/18 10:43 Hct 40.3 % (36.0-47.0) 06/10/18 10:43 MCV 88.4 fL (78.0-98.0) 06/10/18 10:43 Plt Count 142 thou/uL (130-400) 06/10/18 10:43 Neutrophils % 67.6 % (42.0-75.0) 06/10/18 10:43 Sodium 141 mmol/L (136-145) 06/10/18 10:43 Potassium 3.8 mmol/L (3.5-5.1) 06/10/18 10:43 Chloride 104 mmol/L (98-107) 06/10/18 10:43 Carbon Dioxide 29 mmol/L (23-31) 06/10/18 10:43 BUN 5 mg/dL (9.8-20.1) L 06/10/18 10:43 Creatinine 1.05 mg/dL (0.6-1.1) 06/10/18 10:43 Glucose 103 mg/dL (83-110) 06/10/18 10:43 Calcium 9.2 mg/dL (7.8-10.44) 06/10/18 10:43 Total Bilirubin 0.7 mg/dL (0.2-1.2) 06/10/18 10:43 AST 17 U/L (5-34) 06/10/18 10:43 ALT Less than 7 U/L (8-55) L 06/10/18 10:43 Alkaline Phosphatase 91 U/L (40-150) 06/10/18 10:43 CK-MB (CK-2) 1.5 ng/mL (0-6.6) 06/10/18 10:43 B-Natriuretic Peptide 68.3 pg/mL (0-100) 06/10/18 10:43 Serum Total Protein 6.9 g/dL (6.0-8.3) 06/10/18 10:43 Albumin 4.2 g/dL (3.4-4.8) 06/10/18 10:43 Urine Ketones Negative mg/dL (Negative) 06/10/18 11:14 Urine Blood Negative (Negative) 06/10/18 11:14 Urine Nitrite Negative (Negative) 06/10/18 11:14 Ur Leukocyte Esterase Negative (Negative) 06/10/18 11:14 - Radiology Interpretation Chest x-ray Status: image reviewed by me, report reviewed by me Additional comment: negative CT scan - head Status: image reviewed by me, report reviewed by me Additional comment: negative; stable small vessel ischemic disease Other Status: image reviewed by me, report reviewed by me Additional comment: Pelvic XR: negative FMR H&P: A/P - Problem List (1) Depression with anxiety Current Visit: No Status: Chronic (2) Diastolic congestive heart failure Current Visit: No Status: Chronic Code(s): I50.30 - UNSPECIFIED DIASTOLIC ( CONGESTIVE) HEART FAILURE (3) GERD (gastroesophageal reflux disease) Current Visit: No Status: Chronic Code(s): K21.9 - GASTRO-ESOPHAGEAL REFLUX DISEASE WITHOUT ESOPHAGITIS (4) Hyperlipidemia Current Visit: No Status: Chronic Code(s): E78.5 - HYPERLIPIDEMIA, UNSPECIFIED (5) Hypertension Current Visit: No Status: Chronic Code(s): I10 - ESSENTIAL (PRIMARY) HYPERTENSION (6) Hypothyroid Current Visit: No Status: Chronic Code(s): E03.9 - HYPOTHYROIDISM, UNSPECIFIED Qualifiers: Hypothyroidism type: acquired Qualified Code(s): E03.9 - Hypothyroidism, unspecified (7) Parkinson disease Current Visit: No Status: Chronic Code(s): G20 - PARKINSON'S DISEASE (8) Restless leg syndrome Current Visit: No Status: Chronic (9) History of CVA (cerebrovascular accident) Current Visit: Yes Status: Acute Code(s): Z86.73 - PRSNL HX OF TIA (TIA), AND CEREB INFRC W/O RESID DEFICITS (10) Urinary incontinence Current Visit: Yes Status: Chronic Code(s): R32 - UNSPECIFIED URINARY INCONTINENCE (11) Bowel incontinence Current Visit: Yes Status: Acute Code(s): R15.9 - FULL INCONTINENCE OF FECES - Plan 83 yo F with PMH of Parkinson's disease, HFpEF, HTN, and hypothyroidism here for generalized weakness and new onset bowel incontinence. Generalized weakness -Patient denies feeling depressed, on duloxetine currently. Denies SI/HI. Does admit to decreased energy, occasional trouble concentrating, moving more slowly than normal (may be due to the parkinson's), feelings of hopelessness/ helplessness, and decreased interest. -UA negative, CBC and BMP wnl -Head CT neg -CXR neg, Pelvic XR neg -Patient has history of parkinson's disease New Onset Bowel incontinence -First episode of bowel incontinence this morning - Pelvic XR wnl - 5/5 strength in bilat lower extremities, 5/5 patrol community service officer strength bilat HFpEF -Volume overloaded today on exam, with diffuse crackles and edema in BLE -continue home furosemide 20mg Parkinson Disease -Continue pramiprexole 5 mg Hypothyroidism -Missed a few weeks of thyroid medication, just started retaking it a few days ago -Last TSH 7.76 on 05/17 -Contine 125 mcg synthroid HTN -on ASA, lisinopril, HLD -pravastatin 40 mg GERD -pantoprazole 40 mg Anxiety -duloxetine 20 RLS -home lyrica 100 mg FMR H&P: Upper Level - Pertinent history 83 yo F PMH Parkinson's disease. Presents with 6 months of progressively worsening weakness. States today she was unable to walk to the bathroom in time before becoming incontinent. Family brought patient to ER for evaluation. Family was not present a the time of my evaluation. Patient has a beltrán-negative ROS except for generalized weakness. - Pertinent findings Vitals: WNL, BP slightly elevated GEN: NAD. CV: RRR, no murmur Pulm: CTA-B, normal effort Abd: NTND Neuro: strength 5/5 in upper and lower extremities. Labs: WNL EKG: NSR Rate 61 CXR: No acute processes. - Plan Date/Time: 06/10/18 1685 I, Anjum Parker MD, have evaluated this patient and agree with findings/plan as outlined by internet and e business project manager resident. Pertinent changes/additions are listed here. 1. Generalized weakness: She has accepted to rehab at [facility] but is waiting for a room to open. She has been medically cleared for discharge. This is likely progression of her Parkinson's disease. Restart medications for chronic medical conditions. Dispo: discharge to [facility] and will transfer once bed is available. Attending Addendum - Attending Addendum Date/Time: 06/10/18 8234 I personally evaluated the patient and discussed the management with Dr. Bravo/ Elena. I agree with the History, Examination, Assessment and Plan documented above with any addition or exceptions noted below. Patient with history of Parkinson's disease, hypothyroidism, bladder incontinence with recurrent UTI here with generalized weakness. She reports she has been having a progressive decline in strength and feeling more weak over the last 4-5 months. Denies any sudden worsening of that, and denies and chest pain, headache, shortness of breath, lower extremity edema, unilateral weakness or other focal neurological deficit. She did have an episode of bowel incontinence this morning but this may have been related to diarrhea. On exam, patient has symmetric strength, is A&Ox4 in NAD, Cardiac and Pulmonology exams are normal. Her abdomen is soft. She has a symmetrically intact neurological exam. Her labs are benign, including her imaging studies. We have a baseline workup for the acute medical causes of weakness and all are returning normal. No evidence of infection, electrolyte abnormality, endocrinopathy, trauma, altered mentation. PT and Rehab have evaluated the patient and report she would be a good rehab candidate, and the patient is open to this as well. Based on our history, exam, and laboratory/imaging analysis, she has no medical condition ongoing actively that necessitates hospitalization. We are awaiting placement at rehab as they currently do not have any beds available. Will continue patient on home meds but do not anticipate needing to make any urgent interventions for the patient's health.
[2018-06-10 15:05] VITALS: BP 147/79; TEMP 97.4
[2018-06-10] MEDS ORDERED: Pregabalin 50 MG CAP PO SCH (21:00)
[2018-06-10] MEDS ORDERED: Pramipexole Di-HCl 1 MG TAB PO SCH (21:00)
[2018-06-10] MEDS ORDERED: Carbidopa/Levodopa 25-100 mg Tablet PO SCH (21:00)
[2018-06-11] MEDS ORDERED: Levothyroxine Sodium 112 MCG TAB PO SCH (06:00)
[2018-06-11] MEDS ORDERED: DULoxetine 60 MG CAP PO SCH (09:00)
[2018-06-11] MEDS ORDERED: Calcium Carbonate + Vit D 1 TAB PO SCH (09:00)
[2018-06-11] MEDS ORDERED: Lisinopril 10 MG TAB PO SCH (09:00)
[2018-06-11] MEDS ORDERED: Aspirin 81 mg Enteric Coated Tablet PO SCH (09:00)
[2018-06-11] MEDS ORDERED: Furosemide 20 MG TAB PO SCH (09:00)
== END 2018-06-10 21:18 ==
LOC: ERS 10:22 → T4-A 14:49
PROVIDERS: ADMIT Student in an Organized Health Care Education/Training Program; ATTEND Student in an Organized Health Care Education/Training Program
DX: R53.1 Weakness (principal); K21.9 Gastro-esophageal reflux disease without esophagitis; E78.5 Hyperlipidemia, unspecified; I10 Essential (primary) hypertension; E03.9 Hypothyroidism, unspecified; G20 Parkinson's disease; G25.81 Restless legs syndrome; R32 Unspecified urinary incontinence; Z86.73 Personal history of transient ischemic attack (TIA), and cerebral infarction without residual deficits; Z79.82 Long term (current) use of aspirin; Z79.899 Other long term (current) drug therapy
CPT/HCPCS: 51701; 70450; 71045; 72170; 80053; 81003; 82553; 83880; 84484; 85025; 87086; 93005; 97139; 99285; G0378 ×2; G8978; G8979; 36415; A4353

== ENCOUNTER 2018-08-02 11:09 | Emergency (ER) | payer MEDICARE ==
[2018-08-02 12:00] LABS: Bilirubin Negative (Negative); Blood, Urine Negative (Negative); Clarity CLEAR (Clear); Glucose, Urine (Dipstick) Negative (Negative); Leukocyte Trace (Negative); Nitrite Negative (Negative); Protein, Urine (Dipstick) Negative (Neg-Trace); Specific Gravity, Urine 1.021 (1.002-1.036); Urobilinogen 0.2 mg/dL (0.2-1.0)
[2018-08-02 12:05] LABS: Bacteria/HPF None Seen HPF (None Seen); Hyaline Casts/LPF 0-3 HYALINE CAST LPF (0-3 Hyaline); Pathc Cast-AUWi Flag 0.14 (0-2.49); RBC/HPF 0-3 HPF (0-3); Squamous Epithelial 0-3 HPF (0-3); WBC/HPF 0-3 HPF (0-3)
[2018-08-02 12:17] LABS: #Basophils 0.1 thou/uL (0.0-0.2); #Eosinphils 0.1 thou/uL (0.0-0.7); #Lymphocytes 1.6 thou/uL (1.20-3.40); #Monocytes 0.4 thou/uL (0.11-0.59); %Basophils 0.9 % (0.0-1.0); %Eosinophils 1.6 % (0.0-10.0); %Lymphocytes 26.6 % (21.0-51.0); %Neutrophils 64.9 % (42.0-75.0); Hemoglobin 13.1 g/dL (12.0-16.0); Mean Corpuscular Volume 88.2 fL (78.0-98.0); Mean Platelet Volume 8.4 fL (7.4-10.4); Platelet Count 145 thou/uL (130-400); Red Blood Cell (RBC) Count 4.36 mill/uL (4.20-5.40); White Blood Cell (WBC) Count 6.1 thou/uL (4.8-10.8)
[2018-08-02 12:24] LABS: ALT (SGPT) 12 U/L (8-55); AST (SGOT) 15 U/L (5-34); Albumin 3.9 g/dL (3.4-4.8); Alkaline Phosphatase 78 U/L (40-150); Anion Gap 13 mmol/L (10-20); BUN (Urea Nitrogen) 22 mg/dL (9.8-20.1); Bilirubin, Total 0.4 mg/dL (0.2-1.2); Calc. Creatinine Clearance 0 mL/min (70-130); Calcium 9.6 mg/dL (7.8-10.44); Carbon Dioxide 24 mmol/L (23-31); Chloride 109 mmol/L (98-107); Estimated GFR-MDRD 50; Globulin 2.9 g/dL (2.4-3.5); Glucose 104 mg/dL (83-110); Potassium 4.1 mmol/L (3.5-5.1); Protein, Total 6.8 g/dL (6.0-8.3); Sodium 142 mmol/L (136-145)
== END 2018-08-02 12:47 | disposition home or self-care (01) ==
LOC: ERS 11:09
DX: R35.0 Frequency of micturition (principal); I50.9 Heart failure, unspecified; E03.9 Hypothyroidism, unspecified; G20 Parkinson's disease; F41.9 Anxiety disorder, unspecified; Z79.899 Other long term (current) drug therapy; Z86.73 Personal history of transient ischemic attack (TIA), and cerebral infarction without residual deficits; Z79.82 Long term (current) use of aspirin
CPT/HCPCS: 51701; 80053; 81003; 81015; 85025; A4353

== ENCOUNTER 2018-08-03 09:57 | Emergency (ER) | payer MEDICARE ==
[2018-08-03 10:30] LABS: #Eosinphils 0.1 thou/uL (0.0-0.7); #Lymphocytes 1.2 thou/uL (1.20-3.40); #Monocytes 0.4 thou/uL (0.11-0.59); #Neutrophils 4.3 thou/uL (1.40-6.50); %Basophils 0.6 % (0.0-1.0); %Eosinophils 1.8 % (0.0-10.0); %Lymphocytes 19.8 % (21.0-51.0); %Monocytes 6.1 % (0.0-10.0); %Neutrophils 71.7 % (42.0-75.0); Hemoglobin 13.4 g/dL (12.0-16.0); Mean Corpuscular HGB CONC 32.3 g/dL (32.0-36.0); Mean Corpuscular Hemoglobin 28.1 pg (27.0-31.0); Mean Corpuscular Volume 87.3 fL (78.0-98.0); Mean Platelet Volume 8.1 fL (7.4-10.4); Platelet Count 165 thou/uL (130-400); Red Blood Cell (RBC) Count 4.77 mill/uL (4.20-5.40); White Blood Cell (WBC) Count 5.9 thou/uL (4.8-10.8)
[2018-08-03 10:54] LABS: ALT (SGPT) 18 U/L (8-55); AST (SGOT) 26 U/L (5-34); Alkaline Phosphatase 83 U/L (40-150); Anion Gap 13 mmol/L (10-20); BUN (Urea Nitrogen) 18 mg/dL (9.8-20.1); Bilirubin, Total 0.5 mg/dL (0.2-1.2); CK (CPK) 69 U/L (29-168); Calc. Creatinine Clearance 0 mL/min (70-130); Calcium 9.7 mg/dL (7.8-10.44); Carbon Dioxide 23 mmol/L (23-31); Chloride 110 mmol/L (98-107); Estimated GFR-MDRD 63; Globulin 3.2 g/dL (2.4-3.5); Glucose 115 mg/dL (83-110); Protein, Total 7.2 g/dL (6.0-8.3); Sodium 142 mmol/L (136-145)
[2018-08-03 10:56] LABS: Bilirubin Negative (Negative); Blood, Urine Negative (Negative); Clarity CLEAR (Clear); Glucose, Urine (Dipstick) Negative (Negative); Leukocyte Trace (Negative); Nitrite Negative (Negative); Protein, Urine (Dipstick) Negative (Neg-Trace)
[2018-08-03 10:58] LABS: CKMB 1.8 ng/mL (0-6.6); Troponin I Less than 0.010 ng/mL (< 0.028)
[2018-08-03 11:05] LABS: Bacteria/HPF None Seen HPF (None Seen); Hyaline Casts/LPF 0-3 HYALINE CAST LPF (0-3 Hyaline); RBC/HPF 0-3 HPF (0-3); Squamous Epithelial 0-3 HPF (0-3); WBC/HPF 0-3 HPF (0-3)
--- NOTE | 2018-08-03 11:39 | RAD ---
PORTABLE CHEST: Date: 08-03-18 Time: 10:24 am. History: Chest pain Comparison: 06-21-18 FINDINGS: The heart size is normal. The aorta is tortuous. Mild chronic changes are again seen. No focal areas of consolidation, pneumothoraces, lia pulmonary edema or pleural effusions are seen. IMPRESSION: No acute process. POS: YAMILH
[2018-08-03] MEDS ORDERED: Atropine Sulfate 1 mg/10 ml Syringe ONE (11:54)
== END 2018-08-03 13:16 | disposition home or self-care (01) ==
LOC: ERS 09:57
DX: R53.1 Weakness (principal); E03.9 Hypothyroidism, unspecified; G20 Parkinson's disease; I50.9 Heart failure, unspecified; F41.9 Anxiety disorder, unspecified; Z79.899 Other long term (current) drug therapy; Z79.82 Long term (current) use of aspirin
CPT/HCPCS: 51701; 71045; 80053; 81003; 82550; 82553; 83880; 84484; 85025; 93005; A4353; J0461

== ENCOUNTER 2018-08-04 09:24 | Emergency (ER) | payer MEDICARE ==
[2018-08-04 10:05] LABS: Hemoglobin 14.4 g/dL (12.0-16.0); Mean Corpuscular HGB CONC 32.4 g/dL (32.0-36.0); Mean Corpuscular Hemoglobin 27.4 pg (27.0-31.0); Mean Corpuscular Volume 84.6 fL (78.0-98.0); Mean Platelet Volume 10.2 fL (7.4-10.4); Platelet Count 152 thou/uL (130-400); RBC Distribution Width 12.9 % (11.5-14.5); Red Blood Cell (RBC) Count 5.25 mill/uL (4.20-5.40); White Blood Cell (WBC) Count 6.7 thou/uL (4.8-10.8)
[2018-08-04 10:07] LABS: Bilirubin Small (Negative); Blood, Urine Trace (Negative); Clarity Clear (Clear); Glucose, Urine (Dipstick) Negative (Negative); Leukocyte Negative (Negative); Nitrite Negative (Negative); Protein, Urine (Dipstick) 100 mg/dL (Neg-Trace); Urobilinogen 0.2 mg/dL (0.2-1.0); pH, Urine 6.5 (5.0-9.0)
[2018-08-04 10:10] LABS: Bacteria/HPF None Seen HPF (None Seen); RBC/HPF 0-3 HPF (0-3); Squamous Epithelial 0-3 HPF (0-3); WBC/HPF 0-3 HPF (0-3)
[2018-08-04 10:11] LABS: Hyaline Casts/LPF NONE SEEN LPF (0-3 Hyaline)
[2018-08-04 10:12] LABS: ALT (SGPT) 21 U/L (8-55); AST (SGOT) 21 U/L (5-34); Albumin 4.4 g/dL (3.4-4.8); Alkaline Phosphatase 88 U/L (40-150); Anion Gap 15 mmol/L (10-20); BUN (Urea Nitrogen) 12 mg/dL (9.8-20.1); Bilirubin, Total 0.7 mg/dL (0.2-1.2); CK (CPK) 71 U/L (29-168); CKMB 1.7 ng/mL (0-6.6); Calc. Creatinine Clearance 0 mL/min (70-130); Calcium 10.2 mg/dL (7.8-10.44); Carbon Dioxide 27 mmol/L (23-31); Chloride 109 mmol/L (98-107); Estimated GFR-MDRD 65; Globulin 3.3 g/dL (2.4-3.5); Glucose 112 mg/dL (83-110); Lipase 10 U/L (8-78); Potassium 3.7 mmol/L (3.5-5.1); Protein, Total 7.7 g/dL (6.0-8.3); Sodium 147 mmol/L (136-145); Troponin I Less than 0.010 ng/mL (< 0.028)
[2018-08-04 10:21] LABS: Eosinophils 1 % (0-10); Lymphocytes 18 % (21-51); MDiff Complete? YES; Monocytes 4 % (0-10); Neutrophil 76 % (42-75); PLT Morphology Comment Appears Adequate; RBC Morphology Normal
--- NOTE | 2018-08-04 10:25 | RAD ---
UPRIGHT CHEST 1 VIEW: Date: 08/04/18 HISTORY: 83-year-old female with history of not being able to keep right leg still, not feeling well, diarrhea , nausea, and vomiting. COMPARISON: 08/03/18. FINDINGS: Monitor leads overlie the chest. Atherosclerosis of the aorta with ectasia. Minimal increased linear and interstitial markings. These appear stable. IMPRESSION: Stable linear and interstitial increased markings in the bases. Atherosclerosis of the aorta with ect abe. POS: JOVANI
== END 2018-08-04 11:47 | disposition home or self-care (01) ==
LOC: SCSER 09:24
DX: R53.1 Weakness (principal); I50.9 Heart failure, unspecified
CPT/HCPCS: 51701; 71045; 80053; 81003; 81015; 82550; 82553; 83690; 84484; 85025; 93005; A4353

== ENCOUNTER 2018-12-12 20:14 | Emergency (ER) | payer MEDICARE ==
[2018-12-12 20:51] LABS: #Basophils 0.1 thou/uL (0.0-0.2); #Eosinphils 0.1 thou/uL (0.0-0.7); #Lymphocytes 1.4 thou/uL (1.20-3.40); #Monocytes 0.4 thou/uL (0.11-0.59); #Neutrophils 4.6 thou/uL (1.40-6.50); %Basophils 1.2 % (0.0-1.0); %Eosinophils 1.4 % (0.0-10.0); %Lymphocytes 21.3 % (21.0-51.0); %Monocytes 5.8 % (0.0-10.0); %Neutrophils 70.4 % (42.0-75.0); Hemoglobin 14.2 g/dL (12.0-16.0); Mean Corpuscular Volume 87.4 fL (78.0-98.0); Mean Platelet Volume 8.5 fL (7.4-10.4); Platelet Count 151 thou/uL (130-400); RBC Distribution Width 13.8 % (11.5-14.5); Red Blood Cell (RBC) Count 5.06 mill/uL (4.20-5.40); White Blood Cell (WBC) Count 6.6 thou/uL (4.8-10.8)
[2018-12-12 21:06] LABS: ALT (SGPT) 19 U/L (8-55); AST (SGOT) 17 U/L (5-34); Albumin 4.4 g/dL (3.4-4.8); Alkaline Phosphatase 92 U/L (40-150); Anion Gap 16 mmol/L (10-20); BUN (Urea Nitrogen) 15 mg/dL (9.8-20.1); Bilirubin, Total 0.7 mg/dL (0.2-1.2); Calc. Creatinine Clearance 0 mL/min (70-130); Calcium 10.4 mg/dL (7.8-10.44); Carbon Dioxide 23 mmol/L (23-31); Chloride 109 mmol/L (98-107); Estimated GFR-MDRD 56; Globulin 3.2 g/dL (2.4-3.5); Glucose 108 mg/dL (83-110); Lipase 9 U/L (8-78); Protein, Total 7.6 g/dL (6.0-8.3); Sodium 144 mmol/L (136-145)
[2018-12-12 22:10] LABS: Bilirubin Negative (Negative); Blood, Urine Small (Negative); Clarity Cloudy (Clear); Glucose, Urine (Dipstick) Negative (Negative); Leukocyte Moderate (Negative); Nitrite Negative (Negative); Protein, Urine (Dipstick) 30 mg/dL (Neg-Trace); Urobilinogen 0.2 mg/dL (0.2-1.0)
[2018-12-12 22:11] LABS: Bacteria/HPF 2+ HPF (None Seen); Squamous Epithelial 0-3 HPF (0-3); Yeast-All Forms Rare HPF (None Seen)
[2018-12-12 22:14] LABS: Hyaline Casts/LPF NONE SEEN LPF (0-3 Hyaline)
--- NOTE | 2018-12-12 22:40 | RAD ---
CHEST ONE VIEW: History: Dyspnea. Comparison: 08-04-18 FINDINGS: Patient is mildly rotated to the left. Mild tortuosity of the aorta. No pneumothorax. No large effusi ons. No acute osseous abnormalities. IMPRESSION: No acute intrathoracic abnormality. POS: YAMIL
== END 2018-12-12 22:27 | disposition home or self-care (01) ==
LOC: SCSER 20:14
DX: R06.02 Shortness of breath (principal); N39.0 Urinary tract infection, site not specified; E03.9 Hypothyroidism, unspecified; G20 Parkinson's disease; F41.9 Anxiety disorder, unspecified; I50.9 Heart failure, unspecified; Z79.899 Other long term (current) drug therapy
CPT/HCPCS: 51701; 71045; 80053; 81003; 81015; 83690; 83880; 84484; 85025; 85379; 87086; 94760; A4353

== ENCOUNTER 2019-01-12 09:21 | Emergency (ER) | payer MEDICARE ==
[2019-01-12 10:04] LABS: Hemoglobin 13.1 g/dL (12.0-16.0); Mean Corpuscular Hemoglobin 27.7 pg (27.0-31.0); Mean Corpuscular Volume 86.7 fL (78.0-98.0); Mean Platelet Volume 8.8 fL (7.4-10.4); Platelet Count 129 thou/uL (130-400); RBC Distribution Width 13.6 % (11.5-14.5); Red Blood Cell (RBC) Count 4.73 mill/uL (4.20-5.40); White Blood Cell (WBC) Count 5.7 thou/uL (4.8-10.8)
--- NOTE | 2019-01-12 10:06 | RAD ---
SINGLE VIEW OF THE CHEST: Comparison: 12-12-18 History: Chest pain after chest trauma from a fall. FINDINGS: Single view of the chest shows a normal sized cardiomediastinal silhouette. There is no evidence of c onsolidation, mass, or pleural effusion. The bones are unremarkable. IMPRESSION: No evidence of acute cardiopulmonary disease. POS: TPC
[2019-01-12 10:07] LABS: ALT (SGPT) 15 U/L (8-55); AST (SGOT) 17 U/L (5-34); Albumin 3.9 g/dL (3.4-4.8); Alkaline Phosphatase 79 U/L (40-150); Anion Gap 12 mmol/L (10-20); BUN (Urea Nitrogen) 18 mg/dL (9.8-20.1); Bilirubin, Total 0.6 mg/dL (0.2-1.2); Calc. Creatinine Clearance 0 mL/min (70-130); Calcium 9.5 mg/dL (7.8-10.44); Carbon Dioxide 27 mmol/L (23-31); Chloride 104 mmol/L (98-107); Estimated GFR-MDRD 50; Glucose 103 mg/dL (83-110); Protein, Total 6.9 g/dL (6.0-8.3); Sodium 139 mmol/L (136-145)
--- NOTE | 2019-01-12 10:13 | RAD ---
SINGLE VIEW OF THE PELVIS: Comparison: 06-10-18 History: Fall with pelvic trauma. FINDINGS: Single view of the pelvis shows no evidence of acute fracture or dislocation. No degenerative change is seen in either hip. IMPRESSION: Unremarkable exam. POS: TPC
[2019-01-12 10:16] LABS: Band 1 % (5-11); Eosinophils 2 % (0-10); Lymphocytes 8 % (21-51); MDiff Complete? YES; Monocytes 10 % (0-10); Neutrophil 78 % (42-75); Platelet Morphology Comment Appears Adequate; RBC Morphology Normal; Reactive Lymphocytes 1 % (0-10)
[2019-01-12 10:36] LABS: Bilirubin Negative (Negative); Blood, Urine Moderate (Negative); Clarity Cloudy (Clear); Glucose, Urine (Dipstick) Negative (Negative); Leukocyte Large (Negative); Nitrite Positive (Negative); Protein, Urine (Dipstick) 30 mg/dL (Neg-Trace); Specific Gravity, Urine 1.015 (1.005-1.030)
[2019-01-12 10:43] LABS: Bacteria/HPF 4+ HPF (None Seen); Hyaline Casts/LPF NONE SEEN LPF (0-3 Hyaline); RBC/HPF 0-3 HPF (0-3); Squamous Epithelial None Seen HPF (0-3); Transitional Epithelial 0-3 HPF (0-3)
--- NOTE | 2019-01-12 10:43 | CT ---
CT Brain WO Con HISTORY:Fall. Syncopal episode. COMPARISON: 06/10/2018 study FINDINGS: There is generalized ventricular and sulcal prominence. Decreased attenuation to the perive ntricular white matter is consistent with chronic ischemic white matter change. There are no signs of intracerebral hemorrhage or extra-axial fluid collections. The mastoid air cells and visualized si nuses are clear IMPRESSION: No acute intracranial abnormalities.
--- NOTE | 2019-01-12 11:22 | CT ---
CT CERVICAL SPINE: Date: 01/12/19 HISTORY: Lost balance. History of fall. Neck pain. FINDINGS: Axial images are obtained with coronal and sagittal reconstructions. CT images demonstrate disc space height loss with anterior and posterior osteophytes at C5-6 and C6-7 . This is compatible with changes of spondylosis. 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 Some de generative change is seen in the right C5-6 and C6-7 facet joints. Changes of spondylosis seen at C6- 7 with anterior and posterior osteophytes and disc space height loss. IMPRESSION: Multilevel changes of spondylosis with facet and disc space height loss. No evidence of acute cervica l spine abnormality seen. POS: C
== END 2019-01-12 13:32 | disposition home or self-care (01) ==
LOC: SCSER 09:21
DX: M54.9 Dorsalgia, unspecified (principal); N39.0 Urinary tract infection, site not specified; E03.9 Hypothyroidism, unspecified; F41.9 Anxiety disorder, unspecified; I50.9 Heart failure, unspecified; Z79.899 Other long term (current) drug therapy; W01.0XXA Fall on same level from slipping, tripping and stumbling without subsequent striking against object, initial encounter
CPT/HCPCS: 51701; 70450; 71045; 72125; 72170; 80053; 81003; 81015; 83880; 84484; 85025; 87077; 87086; 87186; 93005; A4353

== ENCOUNTER 2019-02-11 20:06 | Emergency (ER) | payer MEDICARE ==
--- NOTE | 2019-02-11 20:47 | RAD ---
PORTABLE CHEST: 02/11/19 HISTORY: Dyspnea. Lungs are clear. No infiltrate. No evidence of vascular congestion or edema. Heart size is upper nor mal an stable from prior exam. IMPRESSION: No acute process. POS: AGW
[2019-02-11 20:51] LABS: #Eosinphils 0.2 thou/uL (0.0-0.7); #Lymphocytes 1.8 thou/uL (1.20-3.40); #Monocytes 0.5 thou/uL (0.11-0.59); #Neutrophils 4.2 thou/uL (1.40-6.50); %Basophils 0.6 % (0.0-1.0); %Eosinophils 2.9 % (0.0-10.0); %Lymphocytes 26.6 % (21.0-51.0); %Monocytes 7.7 % (0.0-10.0); %Neutrophils 62.2 % (42.0-75.0); Hemoglobin 13.6 g/dL (12.0-16.0); Mean Corpuscular HGB CONC 34.7 g/dL (32.0-36.0); Mean Corpuscular Hemoglobin 30.1 pg (27.0-31.0); Mean Corpuscular Volume 86.6 fL (78.0-98.0); Mean Platelet Volume 8.3 fL (7.4-10.4); Platelet Count 158 thou/uL (130-400); RBC Distribution Width 12.7 % (11.5-14.5); Red Blood Cell (RBC) Count 4.52 mill/uL (4.20-5.40); White Blood Cell (WBC) Count 6.7 thou/uL (4.8-10.8)
[2019-02-11 21:08] LABS: ALT (SGPT) 14 U/L (8-55); AST (SGOT) 13 U/L (5-34); Albumin 4.2 g/dL (3.4-4.8); Alkaline Phosphatase 86 U/L (40-150); Anion Gap 13 mmol/L (10-20); BUN (Urea Nitrogen) 14 mg/dL (9.8-20.1); Bilirubin, Total 0.6 mg/dL (0.2-1.2); CK (CPK) 39 U/L (29-168); Calc. Creatinine Clearance 0 mL/min (70-130); Calcium 10.1 mg/dL (7.8-10.44); Carbon Dioxide 28 mmol/L (23-31); Chloride 107 mmol/L (98-107); Estimated GFR-MDRD 61; Globulin 2.5 g/dL (2.4-3.5); Glucose 97 mg/dL (83-110); Potassium 3.8 mmol/L (3.5-5.1); Protein, Total 6.7 g/dL (6.0-8.3); Sodium 144 mmol/L (136-145)
[2019-02-11 21:18] LABS: Bilirubin Negative (Negative); Blood, Urine Trace (Negative); Clarity CLOUDY (Clear); Glucose, Urine (Dipstick) Negative (Negative); Leukocyte Large (Negative); Nitrite Positive (Negative); Protein, Urine (Dipstick) Negative (Neg-Trace); Specific Gravity, Urine 1.009 (1.002-1.036); Urobilinogen 0.2 mg/dL (0.2-1.0); pH, Urine 7.5 (5.0-9.0)
[2019-02-11 21:21] LABS: Bacteria/HPF 4+ HPF (None Seen); Hyaline Casts/LPF 0-3 HYALINE CAST LPF (0-3 Hyaline); RBC/HPF 0-3 HPF (0-3); Squamous Epithelial None Seen HPF (0-3)
[2019-02-11 21:23] LABS: Yeast-AUWi Flag 122.8 (0-25.0)
[2019-02-11 21:33] LABS: Yeast-All Forms None Seen HPF (None Seen)
[2019-02-11] MEDS ORDERED: cefTRIAXone\\ROCEPHIN 2 GM VIAL ONE (23:23)
== END 2019-02-12 | disposition home or self-care (01) ==
LOC: ERS 20:06
DX: R06.00 Dyspnea, unspecified (principal); N39.0 Urinary tract infection, site not specified; E03.9 Hypothyroidism, unspecified; G20 Parkinson's disease; F41.9 Anxiety disorder, unspecified; I50.9 Heart failure, unspecified; Z79.82 Long term (current) use of aspirin; Z79.899 Other long term (current) drug therapy
CPT/HCPCS: 36415; 71045; 80053; 81003; 81015; 82550; 83880; 84484; 85025; 93005; 96365; J0696

== ENCOUNTER 2019-05-12 17:09 | Observation (INO) | payer MEDICARE ==
[2019-05-12 17:40] LABS: #Basophils 0.1 thou/uL (0.0-0.2); #Eosinphils 0.1 thou/uL (0.0-0.7); #Lymphocytes 1.3 thou/uL (1.20-3.40); #Monocytes 0.6 thou/uL (0.11-0.59); #Neutrophils 7.1 thou/uL (1.40-6.50); %Basophils 0.8 % (0.0-1.0); %Eosinophils 1.1 % (0.0-10.0); %Lymphocytes 13.9 % (21.0-51.0); %Monocytes 6.8 % (0.0-10.0); %Neutrophils 77.5 % (42.0-75.0); Hemoglobin 13.3 g/dL (12.0-16.0); Mean Corpuscular HGB CONC 32.5 g/dL (32.0-36.0); Mean Corpuscular Hemoglobin 28.3 pg (27.0-31.0); Mean Platelet Volume 8.6 fL (7.4-10.4); Platelet Count 201 thou/uL (130-400); RBC Distribution Width 13.2 % (11.5-14.5); White Blood Cell (WBC) Count 9.2 thou/uL (4.8-10.8)
[2019-05-12 17:52] LABS: Bilirubin Negative (Negative); Blood, Urine Trace (Negative); Clarity Cloudy (Clear); Glucose, Urine (Dipstick) Negative (Negative); Leukocyte Large (Negative); Nitrite Positive (Negative); Protein, Urine (Dipstick) Negative (Neg-Trace); Urobilinogen 0.2 mg/dL (Less than 2)
[2019-05-12 17:54] LABS: ALT (SGPT) Less than 6 U/L (8-55); AST (SGOT) 14 U/L (5-34); Albumin 3.8 g/dL (3.4-4.8); Alkaline Phosphatase 91 U/L (40-150); Anion Gap 15 mmol/L (10-20); BUN (Urea Nitrogen) 21 mg/dL (9.8-20.1); Bilirubin, Total 0.4 mg/dL (0.2-1.2); CK (CPK) 29 U/L (29-168); Calc. Creatinine Clearance 0 mL/min (70-130); Calcium 9.6 mg/dL (7.8-10.44); Carbon Dioxide 27 mmol/L (23-31); Chloride 104 mmol/L (98-107); Estimated GFR-MDRD 46; Globulin 3.3 g/dL (2.4-3.5); Glucose 128 mg/dL (83-110); Potassium 4.5 mmol/L (3.5-5.1); Protein, Total 7.1 g/dL (6.0-8.3); Sodium 141 mmol/L (136-145)
[2019-05-12 17:55] LABS: Bacteria/HPF 1+ HPF (None Seen); Squamous Epithelial 0-3 HPF (0-3); WBC/HPF Greater Than 50 HPF (0-3)
[2019-05-12] MEDS ORDERED: cefTRIAXone\\ROCEPHIN 2 GM VIAL ONE (18:05)
[2019-05-12] MEDS ORDERED: Sodium Chloride 0.9% 100 ML ONE (18:05)
--- NOTE | 2019-05-12 18:05 | CT ---
CT BRAIN WITHOUT CONTRAST: 05/12/19 HISTORY: Altered mental status. Confusion. FINDINGS: Comparison made with exam of 01/12/19. Changes of cortical atrophy and chronic small vessel ischemic disease are again seen. Ventricular siz e is stable and the basilar cisterns patent. No evidence of acute infarct, hemorrhage, midline shift, or abnormal extra-axial fluid collections ar e seen. The bony calvarium is intact. IMPRESSION: No CT evidence of acute intracranial process. POS: JAMILAA
--- NOTE | 2019-05-12 18:07 | RAD ---
CHEST ONE VIEW: 05/12/19 at 5:53 p.m. HISTORY: Weakness, sepsis. FINDINGS: Comparison is made with exam of 02/11/19. The heart size is normal. The aorta is tortuous. There is continued elevation of the right hemidiaphr agm. No lobar consolidation, pneumothoraces or pleural effusions are seen. IMPRESSION: No radiographic evidence of acute cardiopulmonary process. POS: MZA
[2019-05-12] MEDS ORDERED: Acetaminophen 325 MG TAB PO PRN ×2 (20:35→21:47)
[2019-05-12 20:41] VITALS: BMI 28.5
[2019-05-12] MEDS ORDERED: Sodium Chloride 0.9% 1,000 ML IV SCH (20:45)
[2019-05-12] MEDS ORDERED: Gentamicin Sulfate 80 MG in Premix Bag 1 BAG IVPB SCH (21:00)
[2019-05-12] MEDS ORDERED: Ondansetron PF 4 MG/2 ML Vial IVP PRN (21:47)
[2019-05-12] MEDS ORDERED: Ondansetron ODT 4 MG TAB PO PRN (21:47)
[2019-05-12] MEDS ORDERED: Calcium Carbonate 500 MG ChewTAB PO PRN (21:47)
--- NOTE | 2019-05-12 21:54 | PDOC.FPRHP ---
- History of Present Illness Chief Complaint: Weakness, URinary frequency/urgency and fouls smelling urine History of Present Illness: 83 yo F w/ PMH of recurrent UTIs, HFpEF, HTN, HLD, prior TIA presents with one week h/o increasing weakness, mild confusion, increasing urinary frequency urgency and foul smelling urine. Pt reports similar symptoms with every UTI she has had in the past. She denies fever, chills, sweats, NVDC, abd pain and CVA tenderness. Regarding confusion pt reports she forgot where the bedroom in her house was the last 2 nights and as such though she should be evaluated in the ER. In [facility] pt was noted to have mild ZORAIDA that appears pre-renal and UA findings c/w UTI. Additionally, because of the confusion she had a ct brain which was negative. She was started on vanc, rocephin and gentamycin. She was given 10omL of NS and transferred to [facility] for observation. urrently pt reports she is feeling better and she is alert and oriented X3. ED Course: Vanc X1, Rocephin 2gm X1, Gentamycin X1, NS 100Mls CT brain negative CXR negative - Allergies/Adverse Reactions Allergies Allergy/AdvReac Type Severity Reaction Status Date / Time codeine [Codeine] Allergy Mild CHEST PAIN Verified 05/12/19 20:50 - Home Medications Medication Instructions Recorded Confirmed Type Calcium Carbonate/Vitamin D3 1 tablet PO QAM 03/22/17 05/12/19 History [Calcium 600 + Vitamin D 400] Carbidopa/Levodopa 1 tablet PO TID 03/22/17 05/12/19 History [Carbidopa/Levodopa ODT] Cholecalciferol (Vitamin D3) 1,000 unit PO QAM 03/22/17 05/12/19 History [Vitamin D3] Pregabalin [Lyrica] 100 mg PO TID 03/22/17 05/12/19 History Pramipexole Di-HCl [Pramipexole 0.5 mg PO TID 07/29/17 05/12/19 History Dihydrochloride] Pravastatin Sodium 40 mg PO HS 07/29/17 05/12/19 History Lisinopril [Zestril] 10 mg PO DAILY tab 08/01/17 05/12/19 Rx Furosemide 20 mg PO DAILY 05/16/18 05/12/19 History Nystatin [Nystatin Powder] 1 applic TOP BID 05/16/18 05/12/19 History Levothyroxine Sodium [Synthroid] 125 mcg PO 0600 #30 tab 05/17/18 05/12/19 Rx Melatonin 3 mg PO HS PRN tab 05/17/18 05/12/19 Rx DULoxetine [Cymbalta] 60 mg PO DAILY cap 06/10/18 05/12/19 Rx Multivitamin/Iron/Folic Acid 1 tablet PO DAILY 05/12/19 05/12/19 History [[facility]] - History PMHx:HFpEF, PSHx: None FHx:Non contributory Social:No alcohol tobacco or drugs - Review of Systems General: reports: fatigue. denies: fever/chills, weight/appetite/sleep changes Eyes: denies: vision changes Respiratory: denies: cough, shortness of breath, exercise intolerance Cardiovascular: denies: chest pain, edema, paroxysmal nocturnal dyspnea Gastrointestinal: denies: nausea, vomiting, diarrhea, constipation, abdominal pain, GI bleeding Genitourinary: reports: incontinence, other (frequency, urgency and foul smelling urine). denies: dysuria Skin: denies: rashes Musculoskeletal: denies: pain, tenderness, arthritis/arthralgias Neurological: reports: weakness. denies: numbness, syncope Psychological: denies: anxiety - Vital signs BP: 128/87 HR: 78 RR: 19 Tmax: 98.2 Pox: 99% on RA Wt: 75Kg - Physical Exam Constitutional: NAD, awake, alert and oriented, well developed HEENT: normocephalic and atraumatic, PERRLA, EOMI, conjunctiva clear, no scleral icterus, grossly normal vision, grossly normal hearing Neck: supple, trachea midline, no LAD, no JVD Chest: no-tender to palpation Heart: RRR, normal S1/S2, no murmurs/rubs/gallops, pulses present, other (1+ edema b/l LE) Lungs: CTAB, no respiratory distress, good air movement, no rales/rhonchi, no wheezing Abdomen: soft, non-tender, bowel sounds present, no masses/distention Musculoskeletal: normal tone Neurological: no focal deficit, CN II-XII intact, normal sensation Skin: no rash/lesions, capillary refill <2 seconds Psychiatric: normal mood and affect, good judgment and insight FMR H&P: Results - Labs Result Diagrams: 05/12/19 17:30 05/13/19 03:37 Lab results: WBC 9.2 thou/uL (4.8-10.8) 05/12/19 17:30 Hgb 13.3 g/dL (12.0-16.0) 05/12/19 17:30 Hct 40.9 % (36.0-47.0) 05/12/19 17:30 MCV 87.0 fL (78.0-98.0) 05/12/19 17:30 Plt Count 201 thou/uL (130-400) 05/12/19 17:30 Neutrophils % 77.5 % (42.0-75.0) H 05/12/19 17:30 Sodium 141 mmol/L (136-145) 05/12/19 17:30 Potassium 4.5 mmol/L (3.5-5.1) 05/12/19 17:30 Chloride 104 mmol/L (98-107) 05/12/19 17:30 Carbon Dioxide 27 mmol/L (23-31) 05/12/19 17:30 BUN 21 mg/dL (9.8-20.1) H 05/12/19 17:30 Creatinine 1.12 mg/dL (0.6-1.1) H 05/12/19 17:30 Glucose 128 mg/dL (83-110) H 05/12/19 17:30 Lactic Acid 1.6 mmol/L (0.5-2.2) 05/12/19 17:30 Calcium 9.6 mg/dL (7.8-10.44) 05/12/19 17:30 Total Bilirubin 0.4 mg/dL (0.2-1.2) 05/12/19 17:30 AST 14 U/L (5-34) 05/12/19 17:30 ALT Less than 6 U/L (8-55) L 05/12/19 17:30 Alkaline Phosphatase 91 U/L (40-150) 05/12/19 17:30 Creatine Kinase 29 U/L (29-168) 05/12/19 17:30 Serum Total Protein 7.1 g/dL (6.0-8.3) 05/12/19 17:30 Albumin 3.8 g/dL (3.4-4.8) 05/12/19 17:30 Urine Ketones Negative mg/dL (Negative) 05/12/19 17:47 Urine Blood Trace (Negative) A 05/12/19 17:47 Urine Nitrite Positive (Negative) A 05/12/19 17:47 Ur Leukocyte Esterase Large (Negative) H 05/12/19 17:47 Urine RBC 4-6 HPF (0-3) A 05/12/19 17:47 Urine WBC Greater Than 50 HPF (0-3) A 05/12/19 17:47 Ur Squamous Epith Cells 0-3 HPF (0-3) 05/12/19 17:47 Urine Bacteria 1+ HPF (None Seen) 05/12/19 17:47 - Radiology Interpretation Chest x-ray Status: report reviewed by me (NAD) CT scan - head Status: report reviewed by me (MULU) FMR H&P: A/P - Problem List (1) E. coli UTI Current Visit: Yes Status: Acute Code(s): N39.0 - URINARY TRACT INFECTION, SITE NOT SPECIFIED; B96.20 - UNSP ESCHERICHIA COLI THE CAUSE OF DISEASES CLASSD ELSWHR (2) ZORAIDA (acute kidney injury) Current Visit: No Status: Resolved Code(s): N17.9 - ACUTE KIDNEY FAILURE, UNSPECIFIED (3) Diastolic congestive heart failure Current Visit: No Status: Chronic Code(s): I50.30 - UNSPECIFIED DIASTOLIC ( CONGESTIVE) HEART FAILURE (4) Hyperlipidemia Current Visit: No Status: Chronic Code(s): E78.5 - HYPERLIPIDEMIA, UNSPECIFIED (5) Hypertension Current Visit: No Status: Chronic Code(s): I10 - ESSENTIAL (PRIMARY) HYPERTENSION (6) Hypothyroid Current Visit: No Status: Chronic Code(s): E03.9 - HYPOTHYROIDISM, UNSPECIFIED Qualifiers: Hypothyroidism type: acquired Qualified Code(s): E03.9 - Hypothyroidism, unspecified (7) Parkinson disease Current Visit: No Status: Chronic Code(s): G20 - PARKINSON'S DISEASE - Plan 1) UTI - w/ mild ZORAIDA - given single dose of 2gm rocephin in ED, will continue 1 gm q24 - discontinue all other abx - pt had pos leuks and pos Nitrites making enterbactericiae likely - h/o fluoraquinolone resistant E coli infections, cont rocephin - Gentle IVF with LR overnight @ 100mls/hr - urine cultures pending 2) ZORAIDA: - BUN/Cr >20 - give IVF hydration overnight and repeat am BMP - hold lisinopril if no resolution by am 3) HTN: - cont home medications 4) HLD: - cont home medications 5) Parkinsons: - cont home medications 6) Hypothyroidism: - cont home medications Dispo: Stable, likely dc to home tomorrow after observation. Recheck am BMP to trend renal function and continue gentle IVF hydration overnight and abx. Code Status: Full DVT PPX: Lovenox PCP: Katie Disposition/LOS: See above FMR H&P: Upper Level - Plan Date/Time: 05/12/19 6974 Upper Level H&P Addendum - Attending - Attending Attestation Date/Time: 05/13/19 6831 I personally evaluated the patient and discussed the management with Dr. Graves. I agree with the History, Examination, Assessment and Plan documented above with any addition or exceptions noted below. Patient here with generalized weakness, minor and transient confusion, and UA findings suggestive of UTI. She will be continued on IV abx and IVF. Will see how she is feeling today, but anticipate quick turnaround due to lack of findings suggestive of more serious illness.
[2019-05-12] MEDS ORDERED: Lactated Ringer's 1,000 ML IV SCH (22:00)
[2019-05-13] MEDS ORDERED: Melatonin 3 MG TAB PO PRN (00:40)
[2019-05-13 04:36] LABS: Anion Gap 12 mmol/L (10-20); BUN (Urea Nitrogen) 18 mg/dL (9.8-20.1); Calc. Creatinine Clearance 53 mL/min (70-130); Calcium 9.1 mg/dL (7.8-10.44); Carbon Dioxide 26 mmol/L (23-31); Chloride 107 mmol/L (98-107); Estimated GFR-MDRD 57; Glucose 115 mg/dL (83-110); Potassium 3.9 mmol/L (3.5-5.1); Sodium 141 mmol/L (136-145)
--- NOTE | 2019-05-13 05:53 | PDOC.FM ---
- Subjective Subjective: Pt is doing well this morning, no acute events overnight. States she feels better but still confused at times. A/O x3. No suprapubic pain, no dysuria, urinary frequency, or hematuria. Does endorse tenesmus this morning and requesting miralax prn. No fever/chills, n/v/d, SOB, CP, or pain of any kind. She states she lives alone at home but has a caregiver from 8-1 every day and all 3 adult children live nearby and check on her daily. - Objective MAR Reviewed: Yes Vital Signs & Weight: Vital Signs (12 hours) Temp Pulse Resp BP Pulse Ox 05/13/19 04:39 97.9 F 68 16 146/69 H 90 L 05/13/19 00:19 97.5 F L 82 16 147/67 H 90 L 05/12/19 20:39 98.2 F 75 16 141/64 H 91 L Weight Weight 75.353 kg I&O: 05/11/19 05/12/19 05/13/19 06:59 06:59 06:59 Intake Total 1500 Balance 1500 Result Diagrams: 05/12/19 17:30 05/13/19 03:37 Phys Exam - Physical Examination Constitutional: NAD (resting comfortably) HEENT: moist MMs Neck: supple Respiratory: no wheezing, no rales, no rhonchi, clear to auscultation bilateral Cardiovascular: RRR, no rub 2/6 systolic ejection murmur Gastrointestinal: soft, non-tender, no distention decreased bowel sounds. Musculoskeletal: no edema Neurological: non-focal Psychiatric: normal affect, A&O x 3 Dx/Plan (1) Urinary tract infection Status: Acute (2) Altered mental status Code(s): R41.82 - ALTERED MENTAL STATUS, UNSPECIFIED Status: Acute Qualifiers: Altered mental status type: delirium Qualified Code(s): R41.0 - Disorientation, unspecified (3) Hypertension Code(s): I10 - ESSENTIAL (PRIMARY) HYPERTENSION Status: Chronic (4) Parkinson disease Code(s): G20 - PARKINSON'S DISEASE Status: Chronic (5) Urinary incontinence Code(s): R32 - UNSPECIFIED URINARY INCONTINENCE Status: Chronic - Plan Plan: 83 yo F w/ PMH of recurrent UTIs, HFpEF, HTN, HLD, prior TIA presents with one week h/o increasing weakness, mild confusion, increasing urinary frequency urgency and foul smelling urine. 1) UTI - given single dose of 2gm rocephin in ED, will continue 1 gm q24 - discontinued all other outpatient abx - pt had pos leuks and pos Nitrites making enterbactericiae likely - Records reviewed, last UCx was pansusceptible E.coli. Will transition to PO abx upon discharge. - urine cultures pending, will follow 2) ZORAIDA, resolved - Cr 1.12 -> 0.93 - Gently IVF of LR @ 100cc/hr 3) HTN - cont home medications 4) HLD - cont home medications 5) Parkinsons - cont home medications 6) Hypothyroidism - cont home medications Code Status: Full DVT PPX: Lovenox PCP: ALLAN Dispo: Stable, ZORAIDA resolved, likely d/c today, will follow urine culture. Addendum - Attending - Attending Attestation Date/Time: 05/13/19 2706 I personally evaluated the patient and discussed the management with Dr. Sal Glover. I agree with the History, Examination, Assessment and Plan documented above with any addition or exceptions noted below. See electronic H&P for today's addendum. Treat with abx, possible discharge.
[2019-05-13] MEDS ORDERED: Levothyroxine Sodium 125 MCG TAB PO SCH (06:00)
[2019-05-13] MEDS ORDERED: Polyethylene Glycol 3350 17 GM Packet PO PRN (06:58)
[2019-05-13] MEDS ORDERED: Pramipexole Di-HCl 0.25 MG TAB PO SCH (09:00)
[2019-05-13] MEDS ORDERED: DULoxetine 60 MG CAP PO SCH (09:00)
[2019-05-13] MEDS ORDERED: Carbidopa/Levodopa 25-100 mg Tablet PO SCH (09:00)
[2019-05-13] MEDS ORDERED: Multivitamin W/ Minerals 1 TAB PO SCH (09:00)
[2019-05-13] MEDS ORDERED: Pregabalin 50 MG CAP PO SCH (09:00)
[2019-05-13] MEDS ORDERED: Calcium Carbonate + Vit D 1 TAB PO SCH (09:00)
[2019-05-13] MEDS ORDERED: Furosemide 20 MG TAB PO SCH (09:00)
[2019-05-13] MEDS ORDERED: Enoxaparin Sodium 40 MG/0.4 ML SYRINGE SC SCH (09:00)
[2019-05-13] MEDS ORDERED: Nystatin Powder 15 GM BOT TOP SCH (09:00)
[2019-05-13 09:16] VITALS: BP 141/73; TEMP 98
[2019-05-13] MEDS ORDERED: cefTRIAXone\\ROCEPHIN 1 GM in Sodium Chloride 0.9% 100 ML IVPB SCH (18:00)
[2019-05-13] MEDS ORDERED: Pravastatin Sodium 40 MG TAB PO SCH (21:00)
--- NOTE | 2019-05-13 22:21 | DIS ---
DATE OF ADMISSION: 05/12/2019 DATE OF DISCHARGE: 05/13/2019 RESIDENT: Kevin Glover MD ADMITTING ATTENDING: Azeem Worrell MD DISCHARGE ATTENDING: Azeem Worrell MD. CONSULT: None. PROCEDURES: 1. Brain CT without contrast on 05/12/2019-no acute intracranial process. 2. Chest x-ray on 05/12/2019-no acute cardiopulmonary process. PRIMARY DIAGNOSES: 1. Uncomplicated urinary tract infection. 2. Acute kidney injury, resolved. SECONDARY DIAGNOSES: 1. Hypertension. 2. Hyperlipidemia. 3. Parkinson's. 4. Hypothyroidism. 5. Urinary incontinence. DISCHARGE MEDICATIONS: 1. Macrobid 100 mg p.o. b.i.d. x4 days. 2. Lyrica 100 mg p.o. t.i.d. 3. Carbidopa levodopa 25 mg/100 mg one tablet p.o. t.i.d. 4. Calcium with vitamin D one tablet p.o. q.a.m. 5. Vitamin D tablet 1000 units p.o. q.a.m. 6. Pravastatin 40 mg p.o. at bedtime. 7. Pramipexole 0.5 mg p.o. t.i.d. 8. Lisinopril 10 mg p.o. daily. 9. Nystatin however, apply topically twice daily as directed. 10. Furosemide 20 mg p.o. daily. 11. Levothyroxine 125 mcg p.o. q.a.m. 12. Melatonin 3 mg p.o. at bedtime p.r.n. 13. Cymbalta 60 mg p.o. daily. 14. Multivitamin one tablet p.o. daily. DISCONTINUED MEDICATIONS: None. HISTORY OF PRESENT ILLNESS AND HOSPITAL COURSE: The patient is a pleasant 83-year-old female with past medical history significant for recurrent UTIs, heart failure with preserved ejection fraction, hypertension, hyperlipidemia, and prior TIA, who presented with 1-week history of increasing weakness, mild confusion; urinary frequency, urgency, and some foul smelling urine. The patient states she has had similar symptoms to this in the past when she was told she had a UTI. She denies any fevers, chills, sweats, nausea, vomiting, diarrhea, constipation, abdominal pain, or any CVA tenderness. She reports some mild confusion, which is that she forgot where her bathroom was, however, she was A and O x3. She currently lives alone, but has a caregiver with her throughout most of the day and has 3 adult children who live nearby and check on her daily. Initial lab work showed a dirty urinalysis as well as a mild ZORAIDA that appeared prerenal in nature. A CT of the head was obtained due to her mild confusion and that was negative. She was initially started on vancomycin, Rocephin, gentamicin by the emergency department and was given normal saline bolus and transferred to [facility] for observation. Upon presentation, the patient stated that she was beginning to feel better, she was A and O x3. Once onto the floor, the vancomycin and gentamicin were discontinued and she was continued on 1 g of Rocephin. Urine was sent for culture and pending at the time of discharge. The patient remained afebrile. Initial lab work was unremarkable and her ZORAIDA resolved with gentle IV hydration. Vitals remained stable and she was otherwise doing well. Records were reviewed and the patient had a previous UTI in December that was E coli pansensitive. Thus, it was decided the patient to be discharged with a short course of oral Macrobid and to follow up with the primary care physician. Culture will be followed and the patient notified if any change in antibiotics is warranted. Repeat lab work on the morning of discharge showed her ZORAIDA resolved with creatinine of 0.93 and initial protocol was negative. Initially, the patient's lisinopril was held due to her ZORIADA. With resolution of this, the patient was restarted on her lisinopril at discharge. At the time of discharge, the patient was eager to go home, had no concerns or complaints. She was ambulating without any difficulty, A and O x3 and her daughter was in the room with her. The patient was instructed to follow up with primary care physician and finish out her course of antibiotics. The patient voiced agreement understanding of discharge plan, was then discharged home to self-care. DISPOSITION: Stable. DISCHARGE INSTRUCTIONS: 1. Location: Home. 2. Diet: Heart healthy. 3. Activity: As tolerated. 4. Followup: The patient is to follow up with the primary care physician within 1 week discharge. Job ID: [id number] [facility]
== END 2019-05-13 12:17 | disposition home or self-care (01) ==
LOC: SCSER 17:09 → ONC 20:11
PROVIDERS: ADMIT Student in an Organized Health Care Education/Training Program; ATTEND Student in an Organized Health Care Education/Training Program
DX: N39.0 Urinary tract infection, site not specified (principal); B96.20 Unspecified Escherichia coli [E. coli] as the cause of diseases classified elsewhere; N17.9 Acute kidney failure, unspecified; I11.0 Hypertensive heart disease with heart failure; I50.30 Unspecified diastolic (congestive) heart failure; E78.5 Hyperlipidemia, unspecified; E03.9 Hypothyroidism, unspecified; G20 Parkinson's disease; Z79.899 Other long term (current) drug therapy; Z88.5 Allergy status to narcotic agent
CPT/HCPCS: 51701; 70450; 71045; 80048; 80053; 82550; 83605; 84145; 84484; 85025; 87040; 87077; 87086; 87186; 93005; 96361; 96365; 96367; 96372; 96375; 99285; G0378 ×3; 36415; 81003; 81015; A4353; J0696; J1580; J1650; J3370; J3490

== ENCOUNTER 2019-05-25 12:22 | Emergency (ER) | payer MEDICARE ==
[2019-05-25 12:55] LABS: #Basophils 0.1 thou/uL (0.0-0.2); #Eosinphils 0.1 thou/uL (0.0-0.7); #Lymphocytes 1.7 thou/uL (1.20-3.40); #Monocytes 0.5 thou/uL (0.11-0.59); #Neutrophils 4.7 thou/uL (1.40-6.50); %Basophils 1.4 % (0.0-1.0); %Eosinophils 1.5 % (0.0-10.0); %Lymphocytes 24.1 % (21.0-51.0); %Monocytes 6.9 % (0.0-10.0); %Neutrophils 66.1 % (42.0-75.0); Hemoglobin 14.4 g/dL (12.0-16.0); Mean Corpuscular HGB CONC 32.9 g/dL (32.0-36.0); Mean Corpuscular Hemoglobin 28.1 pg (27.0-31.0); Mean Corpuscular Volume 85.5 fL (78.0-98.0); Mean Platelet Volume 8.4 fL (7.4-10.4); Platelet Count 207 thou/uL (130-400); RBC Distribution Width 13.7 % (11.5-14.5); Red Blood Cell (RBC) Count 5.13 mill/uL (4.20-5.40)
--- NOTE | 2019-05-25 13:10 | RAD ---
XR Chest 1 View Portable HISTORY: Cough COMPARISON: 05/12/2019 FINDINGS: The heart size is normal. The aorta is tortuous The lungs are well expanded without focal a reas of consolidation, pneumothorax or pleural effusions. There is continued elevation the right hemidiaphragm IMPRESSION: No radiographic evidence of acute cardiopulmonary process.
[2019-05-25 13:11] LABS: ALT (SGPT) 8 U/L (8-55); AST (SGOT) 21 U/L (5-34); Albumin 4.3 g/dL (3.4-4.8); Alkaline Phosphatase 96 U/L (40-150); Anion Gap 16 mmol/L (10-20); BUN (Urea Nitrogen) 15 mg/dL (9.8-20.1); Bilirubin, Total 0.5 mg/dL (0.2-1.2); CK (CPK) 49 U/L (29-168); Calc. Creatinine Clearance 0 mL/min (70-130); Calcium 10.3 mg/dL (7.8-10.44); Carbon Dioxide 23 mmol/L (23-31); Chloride 108 mmol/L (98-107); Estimated GFR-MDRD 60; Globulin 3.5 g/dL (2.4-3.5); Glucose 125 mg/dL (83-110); Lipase 18 U/L (8-78); Protein, Total 7.8 g/dL (6.0-8.3); Sodium 143 mmol/L (136-145)
[2019-05-25 13:50] LABS: Bilirubin Negative (Negative); Blood, Urine Negative (Negative); Clarity Clear (Clear); Glucose, Urine (Dipstick) Negative (Negative); Leukocyte Negative (Negative); Nitrite Negative (Negative); Protein, Urine (Dipstick) Negative (Neg-Trace); Urobilinogen 0.2 mg/dL (Less than 2)
--- NOTE | 2019-05-25 14:33 | CT ---
Exam: Abdomen CT without contrast Pelvic CT without contrast HISTORY: Generalized malaise and abdominal pain. Comparison: None FINDINGS: Abdomen CT: Lung bases: Chronic changes Heart: Normal heart size. Calcification in the mitral annulus Aorta: Normal caliber. Gallbladder: Surgically absent. Dilatation of the common bile duct presumed be due to reservoir effec t. Limited evaluation of the solid organs by the lack of IV contrast. Grossly no solid organ abnormality No gastrohepatic, retrocrural or periportal lymphadenopathy Abdominal mesentery: There is stranding of the left abdominal mesentery with mildly enlarged lymph no maría. Pile Driver Operator lymph node measures 1.2 x 0.4 cm. The possibility of mesenteric lymphadenitis is raised. Kidneys: Bilaterally no obstructive uropathy. Intrinsic hyperdensity in the posterior right renal cor memo measuring 0.5 cm and left renal cortex measuring 0.8 cm may represent complex or hemorrhagic cyst. Alimentary canal: Limited evaluation due to lack of oral contrast. No evidence of bowel obstruction. Ileocecal junction is unremarkable Appendix is not appreciated. No inflammation of the cecal apex. There is diverticulosis, without evid ence of diverticulitis. CT PELVIS: Urinary bladder is unremarkable. Uterus is surgically absent. Hypodensity in the left adnexa is presu med to be of ovarian origin, measuring 3.0 x 2.3 cm. Nonemergent KEY PUNCH TEACHER consultation is recommended. Osseous structures: There are no lytic or blastic lesions in the osseous structures IMPRESSION: 1. Diverticulosis, without evidence of diverticulitis. No evidence of small bowel obstruction. 2. No evidence of obstructive uropathy. Hyperdensity in the left or right renal cortex may represent hemorrhagic or proteinaceous cysts Transcribed Date/Time: 05/25/2019 2:55 PM
== END 2019-05-25 16:46 | disposition home or self-care (01) ==
LOC: SCSER 12:22
DX: R19.7 Diarrhea, unspecified (principal); R53.1 Weakness; E78.5 Hyperlipidemia, unspecified; I50.9 Heart failure, unspecified; E03.9 Hypothyroidism, unspecified; G20 Parkinson's disease; F41.9 Anxiety disorder, unspecified; Z79.899 Other long term (current) drug therapy
CPT/HCPCS: 51701; 71045; 74176; 80053; 81003; 82550; 83605; 83690; 84484; 85025; 93005; 96360; 96361; A4353

== ENCOUNTER 2019-07-05 09:15 | Inpatient (IN) | payer MEDICARE ==
[2019-07-05 10:56] LABS: #Eosinphils 0.1 thou/uL (0.0-0.7); #Lymphocytes 1.4 thou/uL (1.20-3.40); #Monocytes 0.5 thou/uL (0.11-0.59); #Neutrophils 4.1 thou/uL (1.40-6.50); %Basophils 0.6 % (0.0-1.0); %Eosinophils 1.6 % (0.0-10.0); %Lymphocytes 23.2 % (21.0-51.0); %Monocytes 7.3 % (0.0-10.0); %Neutrophils 67.3 % (42.0-75.0); Hemoglobin 13.7 g/dL (12.0-16.0); Mean Corpuscular HGB CONC 33.9 g/dL (32.0-36.0); Mean Corpuscular Hemoglobin 29.3 pg (27.0-31.0); Mean Corpuscular Volume 86.3 fL (78.0-98.0); Platelet Count 181 thou/uL (130-400); RBC Distribution Width 13.1 % (11.5-14.5); Red Blood Cell (RBC) Count 4.66 mill/uL (4.20-5.40); White Blood Cell (WBC) Count 6.1 thou/uL (4.8-10.8)
--- NOTE | 2019-07-05 10:57 | RAD ---
CHEST 1 VIEW: HISTORY: Weakness, altered mental status, lethargy. COMPARISON: 05/25/2019. FINDINGS: Heart size is within normal limits. The lungs are clear of acute process. No confluent pneumonia, o vert edema, or pleural effusion. IMPRESSION: No significant acute intrathoracic disease. Stable from prior study. Atherosclerosis of the aorta. POS: TPC
[2019-07-05 11:04] LABS: Bacteria/HPF 4+ HPF (None Seen); Bilirubin Negative (Negative); Blood, Urine 1+ (Negative); Clarity Extra Turbid (Clear); Glucose, Urine (Dipstick) Normal (Negative); Leukocyte 500 Leu/uL (Negative); Nitrite 2+ (Negative); Protein, Urine (Dipstick) 20 mg/dL (Neg-Trace); RBC/HPF 21-50 HPF (0-3); Squamous Epithelial 0-3 HPF (0-3); Urobilinogen Normal mg/dL (Less than 2); WBC/HPF Greater than 50 HPF (0-3)
--- NOTE | 2019-07-05 11:12 | CT ---
BRAIN CT WITHOUT IV CONTRAST: Date: 07/05/19 HISTORY: Altered mental status, lethargy. COMPARISON: 05/12/19. FINDINGS: Bilateral atrophy and chronic white matter ischemic changes, stable. No focal mass or midline shift. Sinuses and mastoids are clear of acute process. IMPRESSION: Stable atrophy and chronic white matter ischemic changes. No mass or bleed, or other acute process. POS: TPC
[2019-07-05 11:22] LABS: ALT (SGPT) 16 U/L (8-55); AST (SGOT) 13 U/L (5-34); Alkaline Phosphatase 96 U/L (40-110); Anion Gap 11 mmol/L (10-20); BUN (Urea Nitrogen) 16 mg/dL (9.8-20.1); Bilirubin, Total 0.8 mg/dL (0.2-1.2); CK (CPK) 34 U/L (29-168); Calc. Creatinine Clearance 0 mL/min (70-130); Calcium 9.6 mg/dL (7.8-10.44); Carbon Dioxide 28 mmol/L (23-31); Chloride 104 mmol/L (98-107); Estimated GFR-MDRD 61; Glucose 96 mg/dL (83-110); Sodium 139 mmol/L (136-145)
[2019-07-05] MEDS ORDERED: Piperacillin/Tazobactam 4.5 GM VIAL ONE (13:10)
--- NOTE | 2019-07-05 13:14 | PDOC.FPRHP ---
- Allergies/Adverse Reactions Allergies Allergy/AdvReac Type Severity Reaction Status Date / Time codeine [Codeine] Allergy Mild CHEST PAIN Verified 05/12/19 20:50 - Home Medications Medication Instructions Recorded Confirmed Type Calcium Carbonate/Vitamin D3 1 tablet PO QAM 03/22/17 05/12/19 History [Calcium 600 + Vitamin D 400] Carbidopa/Levodopa 1 tablet PO TID 03/22/17 05/12/19 History [Carbidopa/Levodopa ODT] Cholecalciferol (Vitamin D3) 1,000 unit PO QAM 03/22/17 05/12/19 History [Vitamin D3] Pregabalin [Lyrica] 100 mg PO TID 03/22/17 05/12/19 History Pramipexole Di-HCl [Pramipexole 0.5 mg PO TID 07/29/17 05/12/19 History Dihydrochloride] Pravastatin Sodium 40 mg PO HS 07/29/17 05/12/19 History Lisinopril [Zestril] 10 mg PO DAILY tab 08/01/17 05/12/19 Rx Furosemide 20 mg PO DAILY 05/16/18 05/12/19 History Nystatin [Nystatin Powder] 1 applic TOP BID 05/16/18 05/12/19 History Levothyroxine Sodium [Synthroid] 125 mcg PO 0600 #30 tab 05/17/18 05/12/19 Rx Melatonin 3 mg PO HS PRN tab 05/17/18 05/12/19 Rx DULoxetine [Cymbalta] 60 mg PO DAILY cap 06/10/18 05/12/19 Rx Multivitamin/Iron/Folic Acid 1 tablet PO DAILY 05/12/19 05/12/19 History [Century] Nitrofurantoin Monohyd/M-Cryst 100 mg PO BID 4 Days #8 cap 05/13/19 Rx [Macrobid] - History PMHx: recurrent UTI, HFpEF, HTN, HLD, TIA, Parkinson's, Hypothyroidism PSHx: cholecystectomy, hysterctomy FHx:non-contributory [facility] - Vital signs BP: [] HR: [] RR: [] Tmax: [] Pox: []% on [] Wt: [] FMR H&P: Results - Labs Result Diagrams: 07/05/19 10:47 07/05/19 10:47 Lab results: WBC 6.1 thou/uL (4.8-10.8) 07/05/19 10:47 Hgb 13.7 g/dL (12.0-16.0) 07/05/19 10:47 Hct 40.3 % (36.0-47.0) 07/05/19 10:47 MCV 86.3 fL (78.0-98.0) 07/05/19 10:47 Plt Count 181 thou/uL (130-400) 07/05/19 10:47 Neutrophils % 67.3 % (42.0-75.0) 07/05/19 10:47 Sodium 139 mmol/L (136-145) 07/05/19 10:47 Potassium 4.0 mmol/L (3.5-5.1) 07/05/19 10:47 Chloride 104 mmol/L (98-107) 07/05/19 10:47 Carbon Dioxide 28 mmol/L (23-31) 07/05/19 10:47 BUN 16 mg/dL (9.8-20.1) 07/05/19 10:47 Creatinine 0.88 mg/dL (0.6-1.1) 07/05/19 10:47 Glucose 96 mg/dL (83-110) 07/05/19 10:47 Calcium 9.6 mg/dL (7.8-10.44) 07/05/19 10:47 Total Bilirubin 0.8 mg/dL (0.2-1.2) 07/05/19 10:47 AST 13 U/L (5-34) 07/05/19 10:47 ALT 16 U/L (8-55) 07/05/19 10:47 Alkaline Phosphatase 96 U/L (40-110) 07/05/19 10:47 Creatine Kinase 34 U/L (29-168) 07/05/19 10:47 Serum Total Protein 7.0 g/dL (6.0-8.3) 07/05/19 10:47 Albumin 4.0 g/dL (3.4-4.8) 07/05/19 10:47 Urine Ketones Negative mg/dL (Negative) 07/05/19 10:35 Urine Blood 1+ (Negative) A 07/05/19 10:35 Urine Nitrite 2+ (Negative) A 07/05/19 10:35 Ur Leukocyte Esterase 500 Aleksandar/uL (Negative) A 07/05/19 10:35 Urine RBC 21-50 HPF (0-3) A 07/05/19 10:35 Urine WBC Greater than 50 HPF (0-3) A 07/05/19 10:35 Ur Squamous Epith Cells 0-3 HPF (0-3) 07/05/19 10:35 Urine Bacteria 4+ HPF (None Seen) A 07/05/19 10:35 FMR H&P: A/P - Problem List (1) Hypertension Current Visit: No Status: Chronic Code(s): I10 - ESSENTIAL (PRIMARY) HYPERTENSION (2) Hypothyroid Current Visit: No Status: Chronic Code(s): E03.9 - HYPOTHYROIDISM, UNSPECIFIED Qualifiers: Hypothyroidism type: acquired Qualified Code(s): E03.9 - Hypothyroidism, unspecified (3) Parkinson disease Current Visit: No Status: Chronic Code(s): G20 - PARKINSON'S DISEASE - Plan # Recurrent UTI - failed outpt treatment with keflex - s/p Zosyn in ED - urine FMR H&P: Upper Level - Plan Date/Time: 07/05/19 1314 I, [], have evaluated this patient and agree with findings/plan as outlined by paralegal internship resident. Pertinent changes/additions are listed here.
--- NOTE | 2019-07-05 13:54 | PDOC.EVN ---
Event Note - Event Note Event Note: Patient fired [facility] per ED classification clerk's ED physician informed
[2019-07-05] MEDS ORDERED: Senokot S 8.6-50 MG TAB PO PRN (14:39)
[2019-07-05] MEDS ORDERED: hydrALAZINE 20 MG/ML VIAL SLOW IVP PRN (14:39)
[2019-07-05] MEDS ORDERED: Cepastat Lozenges 1 LOZ PO PRN (14:39)
[2019-07-05] MEDS ORDERED: Loratadine 10 MG TAB PO PRN (14:39)
[2019-07-05] MEDS ORDERED: Sodium Chloride 0.65% Nasal 44 ML BOT EA NARE PRN (14:39)
[2019-07-05] MEDS ORDERED: Diabetic Tussin 200 MG/10 ML UDCUP PO PRN (14:39)
[2019-07-05] MEDS ORDERED: Loperamide HCl 2 MG CAP PO PRN (14:39)
[2019-07-05] MEDS ORDERED: Calcium Carbonate 500 MG ChewTAB PO PRN (14:39)
[2019-07-05] MEDS ORDERED: Labetalol HCl 100 MG/20 ML VIAL SLOW IVP PRN (14:39)
[2019-07-05] MEDS ORDERED: Bisacodyl 10 MG SUPP PR PRN (14:39)
[2019-07-05] MEDS ORDERED: Artificial Tears 18 DROP/0.9 ML EA EYE PRN (14:39)
[2019-07-05] MEDS ORDERED: Metoclopramide HCl 10 MG/2 ML VIAL IVP PRN (14:39)
[2019-07-05 14:42] VITALS: BMI 27.9
[2019-07-05] MEDS ORDERED: cefTRIAXone\\ROCEPHIN 1 GM in Sodium Chloride 0.9% 100 ML IVPB SCH (15:00)
[2019-07-05] MEDS: Sodium Chloride 0.9% 1,000 ML IV SCH (15:19)
[2019-07-05] MEDS: Pramipexole Di-HCl 1 MG TAB PO SCH ×2 (15:21→20:04)
--- NOTE | 2019-07-05 15:40 | HP ---
PRIMARY CARE PHYSICIAN: Dr. Ceron at [facility]. REASON FOR ADMISSION: Urinary tract infection, altered mental status. HISTORY OF PRESENT ILLNESS: An 84-year-old female, who lives at [facility], who was sent from senior living for altered mental status. The patient has recent history of urinary tract infection and she was treated with amoxicillin as an outpatient basis for 7 days. This morning, the patient was lethargic and altered away from her baseline status. She was talking, which was not making any sense and that is why the patient's family member, Pete was notified, and subsequently, the patient was sent to emergency room for evaluation. In the emergency room, the patient has routine labs including CBC, BMP, and LFT are normal, but her urinalysis is consistent with urinary tract infection with nitrite positive as well as leukocyte esterase positive. As per senior living lately, the patient was more lethargic. She was having poor p.o. intake and she was becoming more and more weak. She has underlying Parkinson disease. The patient did not have any cough, chest pain, constipation, diarrhea, melena, hematochezia, or upper or lower respiratory infection recently. PAST MEDICAL HISTORY: Parkinson disease, chronic diastolic heart failure, [id number] aortic regurgitation, hypothyroidism, hypertension. PAST PSYCHIATRIC HISTORY: Anxiety and depression. PAST SURGICAL HISTORY: Cholecystectomy, hysterectomy. SOCIAL HISTORY: The patient is from [facility]. No history of tobacco, alcohol, or illicit drug abuse. CODE STATUS: The patient has full code status at senior living and the patient's granddaughter, Pete, is power of staff attorney. FAMILY HISTORY: No strong family history of premature coronary artery disease, stroke, or cancer. REVIEW OF SYSTEMS: CONSTITUTIONAL: Negative for weight loss or gain, ability to conduct usual activities. SKIN: Negative for rash, itching. EYES: Negative for double vision, pain. ENT/MOUTH: Negative for nose bleeding, neck stiffness, pain, tenderness. CARDIOVASCULAR: Negative for palpitations, dyspnea on exertion, orthopnea. RESPIRATORY: Negative for shortness of breath, wheezing, cough, hemoptysis, fever or night sweats. GASTROINTESTINAL: Negative for poor appetite, abdominal pain, heartburn, nausea , vomiting, constipation, or diarrhea. GENITOURINARY: Negative for urgency, frequency, dysuria, nocturia. MUSCULOSKELETAL: Negative for pain, swelling. NEUROLOGIC/PSYCHIATRIC: Negative for anxiety, depression. ALLERGY/IMMUNOLOGIC: Negative for skin rash, bleeding tendency. Please see my HPI for pertinent positives and negatives. All other review of systems reviewed and negative except as mentioned in HPI. ALLERGIES: CODEINE. CURRENT HOME MEDICATIONS: As per senior living record, the patient is on; 1. Carbidopa/levodopa 25/100 one tablet t.i.d. 2. Calcium with vitamin D one tablet daily. 3. Vitamin D3, 1000 units p.o. daily. 4. Multivitamin one tablet p.o. daily. 5. Pramipexole 0.5 mg p.o. t.i.d. 6. Pravastatin 40 mg at bedtime. 7. Lyrica 100 mg t.i.d. 8. Cymbalta 60 mg daily. 9. Levothyroxine 125 mcg daily. 10. Lisinopril 10 mg daily. 11. Melatonin 6 mg p.o. at bedtime. EMERGENCY ROOM COURSE: The patient has received Zosyn. PHYSICAL EXAMINATION: VITAL SIGNS: On arrival, blood pressure 161/83, , respiratory rate 16, saturations 95% on room air, temperature 98.7, . Weight 70.3 kg. GENERAL: The patient is currently alert, awake, follows simple command, appears weak. HEENT: Normocephalic and atraumatic. Eyes, pupils round and reactive to light. Extraocular muscle intact. ENT, oropharynx within normal limits. Moist mucous membranes. No oral lesion. No pharyngeal erythema. No exudate. NECK: Supple. No JVD. No thyromegaly. No carotid bruit. No jugular venous distention. LUNGS: Clear to auscultation without any rhonchi or rales. CARDIAC: S1 and S2 regular. Slight diastolic murmur noted at aortic area. No gallop. No rub. ABDOMEN: Soft. Bowel sounds are present. Nontender. Nondistended. No organomegaly. No mass. No suprapubic tenderness. BACK: Unremarkable. No CVA tenderness. EXTREMITIES: Upper extremities, passive movement of all joints are normal. Lower extremities, no edema. Good distal pulsation. SKIN: No skin rash. HEMATOLOGIC: No lymphadenopathy. PSYCHIATRIC: Normal affect. NEUROLOGIC: Nonfocal examination. She moves all 4 limbs. No focal neurological deficit noted. Sensation intact. Speech normal, though the patient has slight confusion. SIGNIFICANT LABORATORY DATA AND IMAGING STUDIES: EKG showing normal sinus rhythm, LVH. CBC; WBC 6.1, hemoglobin 13.7, platelet 181. BMP; sodium 139, potassium 4.0, chloride 104, carbon dioxide 28, BUN 16, creatinine 0.88, glucose 96, calcium 9.6. LFT; AST 13, ALT 16, alkaline phosphatase 96, albumin 4.0. Troponin-I less than 0.010. Urinalysis consistent with urinary tract infection. ASSESSMENT AND PLAN AND IMPRESSION: 1. Acute cystitis. The patient failed outpatient therapy. Currently, urinalysis is significantly abnormal with nitrite positive and leukocyte esterase positive. The patient has bacteriuria. The patient has failed outpatient therapy. The patient will require hospitalization and the patient will need broad-spectrum antibiotic therapy. We will continue with Zosyn 4.5 g IV q.6 hourly suspecting multidrug resistant urinary tract infection. If culture shows multidrug resistant urinary tract infection, then we will consider ID evaluation. Otherwise, we will continue with appropriate antibiotic therapy based on culture result. 2. Parkinson disease. We will continue carbidopa/levodopa 25/100 one tablet t.i.d. and pramipexole 0.5 mg t.i.d. 3. Hypertension. We will continue lisinopril 10 mg p.o. daily. 4. Insomnia. We will continue melatonin 6 mg p.o. at bedtime. 5. Vitamin D deficiency. Continue vitamin D3, 1000 units p.o. daily. 6. Dyslipidemia. Continue pravastatin 40 mg p.o. at bedtime. 7. Anxiety and depression. We will continue Cymbalta 60 mg p.o. daily. We will hold on Lyrica therapy because of somnolence. 8. Gastroesophageal reflux disease. We will continue Protonix 40 mg p.o. daily. 9. Deep venous thrombosis prophylaxis, Lovenox 40 mg subcu daily. 10. Gastrointestinal prophylaxis, Protonix 40 mg p.o. daily. CODE STATUS: The patient has full code status at senior living. DISPOSITION PLAN: Based on clinical course, we are expecting the patient's stay in hospital more than 2 midnights. Plan of care discussed with the patient in detail. I tried to call the patient' s granddaughter on phone, but unable to reach her and voicemail left. Job ID: [id number] [facility]
[2019-07-05] MEDS: Carbidopa/Levodopa 25-100 mg Tablet PO SCH ×2 (15:44→20:05)
[2019-07-05] MEDS: Piperacillin/Tazobactam 4.5 GM in Sodium Chloride 0.9% 100 ML IVPB SCH ×2 (17:45→23:42)
[2019-07-05] MEDS: Pravastatin Sodium 40 MG TAB PO SCH (20:04)
[2019-07-06] MEDS: Acetaminophen 325 MG TAB PO PRN ×2 (00:57→20:14)
[2019-07-06] MEDS: Melatonin 3 MG TAB PO PRN ×2 (00:57→20:14)
[2019-07-06] MEDS: Piperacillin/Tazobactam 4.5 GM in Sodium Chloride 0.9% 100 ML IVPB SCH ×3 (05:59→18:11)
[2019-07-06] MEDS: Enoxaparin Sodium 40 MG/0.4 ML SYRINGE SC SCH (08:46)
[2019-07-06] MEDS: Aspirin Chewable 81 MG TAB PO SCH (08:46)
[2019-07-06] MEDS: Calcium Carbonate + Vit D 1 TAB PO SCH (08:46)
[2019-07-06] MEDS: Saccharomyces boulardii 250 MG CAP PO SCH (08:47)
[2019-07-06] MEDS: Carbidopa/Levodopa 25-100 mg Tablet PO SCH ×3 (08:47→20:14)
[2019-07-06] MEDS: DULoxetine 60 MG CAP PO SCH (08:47)
[2019-07-06] MEDS: Lisinopril 10 MG TAB PO SCH (08:48)
[2019-07-06] MEDS: Pramipexole Di-HCl 1 MG TAB PO SCH ×3 (08:48→20:14)
[2019-07-06] MEDS ORDERED: FLU VACC TS2019-20(65YR UP)/PF 180 MCG/0.5 ML SYRINGE IM ONE (09:00)
[2019-07-06] MEDS ORDERED: Prevnar 13-Val Conj/PF 0.5 ML SYRINGE IM ONE (09:00)
[2019-07-06] MEDS: Sodium Chloride 0.9% 1,000 ML IV SCH (11:39)
--- NOTE | 2019-07-06 13:34 | PDOC.HOSPP ---
- Subjective Encounter Date: 07/06/19 Encounter Time: 10:30 Subjective: Patient seen and examined. No new complaints. No overnight events - Objective Vital Signs & Weight: Vital Signs (12 hours) Temp Pulse Resp BP BP Pulse Ox 07/06/19 08:48 160/78 H 07/06/19 08:00 97.5 F L 71 18 160/78 H 97 07/06/19 03:00 97.8 F 65 17 162/84 H 95 Weight Weight 163 lb I&O: 07/05/19 07/06/19 07/07/19 06:59 06:59 06:59 Intake Total 1685 Balance 1685 Result Diagrams: 07/05/19 10:47 07/05/19 10:47 Additional Labs: Accuchecks 07/05/19 19:26 POC Glucose 105 Hospitalist ROS - Review of Systems Constitutional: reports: weakness, malaise. denies: fever, chills, sweats, other ENT: denies: ear pain, ear discharge, nose pain, nose discharge, nose congestion , mouth pain, mouth swelling, throat pain, throat swelling, other Respiratory: denies: cough, dry, shortness of breath, hemoptysis, SOB with excertion, pleuritic pain, sputum, wheezing, other Cardiovascular: denies: chest pain, palpitations, orthopnea, paroxysmal noc. dyspnea, edema, light headedness, other Gastrointestinal: denies: nausea, vomiting, abdominal pain, diarrhea, constipation, melena, hematochezia, other Genitourinary: denies: dysuria, frequency, incontinence, hematuria, retention, other Musculoskeletal: denies: neck pain, shoulder pain, arm pain, back pain, hand pain, leg pain, foot pain, other - Medication Medications: Active Medications Generic Name Dose Route Start Last Admin Trade Name Freq PRN Reason Stop Dose Admin Acetaminophen 650 mg 07/05/19 14:39 07/06/19 00:57 Tylenol PO 650 mg Q4H PRN Administration Headache/Fever/Mild Pain (1-3) Aspirin 81 mg 07/06/19 09:00 07/06/19 08:46 Aspirin Chewable PO 81 mg DAILY SYMONE Administration Calcium/Vitamin D 1 tab 07/06/19 08:00 07/06/19 08:46 Caltrate 600 + Vit D PO 1 tab QAM-WM SYMONE Administration Carbidopa/Levodopa 1 tab 07/05/19 15:00 07/06/19 08:47 Sinemet 25-100 PO 1 tab TID SYMONE Administration Cholecalciferol 1,000 units 07/06/19 09:00 07/06/19 08:46 Vitamin D3 PO 1,000 units DAILY SYMONE Administration Duloxetine HCl 60 mg 07/06/19 09:00 07/06/19 08:47 Cymbalta PO 60 mg DAILY SYMONE Administration Enoxaparin Sodium 40 mg 07/06/19 09:00 07/06/19 08:46 Lovenox SC 40 mg 0900 SYMONE Administration Sodium Chloride 1,000 mls @ 75 mls/hr 07/05/19 14:39 07/06/19 11:39 Normal Saline 0.9% IV 1,000 mls .[id number] SYMONE Administration Piperacillin Sod/Tazobactam 100 mls @ 200 mls/hr 07/05/19 18:00 07/06/19 11: 36 Sod 4.5 gm/ Sodium Chloride IVPB 100 mls Q6HR SYMONE Administration Lisinopril 10 mg 07/06/19 09:00 07/06/19 08:48 Zestril PO 10 mg DAILY SYMONE Administration Melatonin 6 mg 07/05/19 15:01 07/06/19 00:57 Melatonin PO 6 mg HS PRN Administration Insomnia Pantoprazole Sodium 40 mg 07/06/19 09:00 07/06/19 08:47 Protonix PO 40 mg DAILY SYMONE Administration Pramipexole Dihydrochloride 0.5 mg 07/05/19 15:00 07/06/19 08:48 Mirapex PO 0.5 mg TID SYMONE Administration Pravastatin Sodium 40 mg 07/05/19 21:00 07/05/19 20:04 Pravachol PO 40 mg HS SYMONE Administration Saccharomyces Boulardii 250 mg 07/06/19 09:00 07/06/19 08:47 Florastor PO 250 mg DAILY SYMONE Administration - Exam General Appearance: NAD, awake alert Eye: PERRL, anicteric sclera ENT: normocephalic atraumatic, no oropharyngeal lesions Neck: supple, symmetric, no JVD, no thyromegaly Heart: RRR, no murmur, no gallops, no rubs, normal peripheral pulses Respiratory: CTAB, no wheezes, no rales, no ronchi, normal chest expansion Gastrointestinal: soft, non-tender, non-distended, normal bowel sounds Extremities: no cyanosis, no clubbing, no edema Skin: normal turgor, no lesions Neurological: cranial nerve grossly intact, no focal deficits Musculoskeletal: normal tone, normal strength Psychiatric: normal affect, normal behavior Hosp A/P (1) Recurrent UTI Code(s): N39.0 - URINARY TRACT INFECTION, SITE NOT SPECIFIED Status: Acute (2) Physical deconditioning Code(s): R53.81 - OTHER MALAISE Status: Acute (3) Chronic stage c diastolic heart failure Code(s): I50.32 - CHRONIC DIASTOLIC (CONGESTIVE) HEART FAILURE Status: Chronic (4) History of CVA (cerebrovascular accident) Code(s): Z86.73 - PRSNL HX OF TIA (TIA), AND CEREB INFRC W/O RESID DEFICITS Status: Chronic (5) Depression with anxiety Status: Chronic (6) GERD (gastroesophageal reflux disease) Code(s): K21.9 - GASTRO-ESOPHAGEAL REFLUX DISEASE WITHOUT ESOPHAGITIS Status: Chronic Qualifiers: Esophagitis presence: without esophagitis Qualified Code(s): K21.9 - Gastro -esophageal reflux disease without esophagitis (7) Hyperlipidemia Code(s): E78.5 - HYPERLIPIDEMIA, UNSPECIFIED Status: Chronic Qualifiers: Hyperlipidemia type: unspecified Qualified Code(s): E78.5 - Hyperlipidemia , unspecified (8) Hypertension Code(s): I10 - ESSENTIAL (PRIMARY) HYPERTENSION Status: Chronic Qualifiers: Hypertension type: essential hypertension Qualified Code(s): I10 - Essential (primary) hypertension (9) Hypothyroid Code(s): E03.9 - HYPOTHYROIDISM, UNSPECIFIED Status: Chronic Qualifiers: Hypothyroidism type: acquired Qualified Code(s): E03.9 - Hypothyroidism, unspecified (10) Parkinson disease Code(s): G20 - PARKINSON'S DISEASE Status: Chronic (11) Restless leg syndrome Status: Chronic - Plan old records reviewed/req, continue antibiotics, dc IVF 07/06/19- follow on culture result, medication reviewed as above, symptomatic treatment, continue zosyn for now
[2019-07-06] MEDS: Pravastatin Sodium 40 MG TAB PO SCH (20:14)
[2019-07-07] MEDS: Piperacillin/Tazobactam 4.5 GM in Sodium Chloride 0.9% 100 ML IVPB SCH ×3 (00:07→12:41)
[2019-07-07] MEDS: Calcium Carbonate + Vit D 1 TAB PO SCH (09:35)
[2019-07-07] MEDS: Saccharomyces boulardii 250 MG CAP PO SCH (09:35)
[2019-07-07] MEDS: Lisinopril 10 MG TAB PO SCH (09:35)
[2019-07-07] MEDS: Pramipexole Di-HCl 1 MG TAB PO SCH (09:36)
[2019-07-07] MEDS: DULoxetine 60 MG CAP PO SCH (09:36)
[2019-07-07] MEDS: Carbidopa/Levodopa 25-100 mg Tablet PO SCH (09:36)
[2019-07-07] MEDS: Enoxaparin Sodium 40 MG/0.4 ML SYRINGE SC SCH (09:37)
[2019-07-07] MEDS: Aspirin Chewable 81 MG TAB PO SCH (09:37)
--- NOTE | 2019-07-07 10:28 | PDOC.HOSPP ---
- Subjective Encounter Date: 07/07/19 Encounter Time: 07:45 Subjective: Patient seen and examined. No new complaints. No overnight events - Objective Vital Signs & Weight: Vital Signs (12 hours) Temp Pulse Resp BP BP Pulse Ox 07/07/19 09:35 169/77 H 07/07/19 04:00 97.9 F 58 L 20 163/88 H 94 L 07/07/19 00:00 97.8 F 70 20 164/76 H 92 L Weight Weight 163 lb I&O: 07/06/19 07/07/19 07/08/19 06:59 06:59 06:59 Intake Total 1685 664 Output Total 700 Balance 1685 -36 Result Diagrams: 07/05/19 10:47 07/05/19 10:47 Hospitalist ROS - Review of Systems ENT: denies: ear pain, ear discharge, nose pain, nose discharge, nose congestion , mouth pain, mouth swelling, throat pain, throat swelling, other Respiratory: denies: cough, dry, shortness of breath, hemoptysis, SOB with excertion, pleuritic pain, sputum, wheezing, other Cardiovascular: denies: chest pain, palpitations, orthopnea, paroxysmal noc. dyspnea, edema, light headedness, other Gastrointestinal: denies: nausea, vomiting, abdominal pain, diarrhea, constipation, melena, hematochezia, other Genitourinary: denies: dysuria, frequency, incontinence, hematuria, retention, other Musculoskeletal: denies: neck pain, shoulder pain, arm pain, back pain, hand pain, leg pain, foot pain, other Skin: denies: rash, lesions, demetria, bruising, other - Medication Medications: Active Medications Generic Name Dose Route Start Last Admin Trade Name Freq PRN Reason Stop Dose Admin Acetaminophen 650 mg 07/05/19 14:39 07/06/19 20:14 Tylenol PO 650 mg Q4H PRN Administration Headache/Fever/Mild Pain (1-3) Artificial Tears 2 drop 07/05/19 14:39 07/06/19 20:13 Tears Naturale EA EYE 2 drop PRN PRN Administration Dry Eyes Aspirin 81 mg 07/06/19 09:00 07/07/19 09:37 Aspirin Chewable PO 81 mg DAILY SYMONE Administration Calcium/Vitamin D 1 tab 07/06/19 08:00 07/07/19 09:35 Caltrate 600 + Vit D PO 1 tab QAM-WM SYMONE Administration Carbidopa/Levodopa 1 tab 07/05/19 15:00 07/07/19 09:36 Sinemet 25-100 PO 1 tab TID SYMONE Administration Cholecalciferol 1,000 units 07/06/19 09:00 07/07/19 09:36 Vitamin D3 PO 1,000 units DAILY SYMONE Administration Duloxetine HCl 60 mg 07/06/19 09:00 07/07/19 09:36 Cymbalta PO 60 mg DAILY SYMONE Administration Enoxaparin Sodium 40 mg 07/06/19 09:00 07/07/19 09:37 Lovenox SC 40 mg 0900 SYMONE Administration Piperacillin Sod/Tazobactam 100 mls @ 200 mls/hr 07/05/19 18:00 07/07/19 05: 26 Sod 4.5 gm/ Sodium Chloride IVPB 100 mls Q6HR SYMONE Administration Lisinopril 10 mg 07/06/19 09:00 07/07/19 09:35 Zestril PO 10 mg DAILY SYMONE Administration Loratadine 10 mg 07/05/19 14:39 07/06/19 20:14 Claritin PO 10 mg DAILYPRN PRN Administration Sinus Symptoms Melatonin 6 mg 07/05/19 15:01 07/06/19 20:14 Melatonin PO 6 mg HS PRN Administration Insomnia Pantoprazole Sodium 40 mg 07/06/19 09:00 07/07/19 09:37 Protonix PO 40 mg DAILY SYMONE Administration Pramipexole Dihydrochloride 0.5 mg 07/05/19 15:00 07/07/19 09:36 Mirapex PO 0.5 mg TID SYMONE Administration Pravastatin Sodium 40 mg 07/05/19 21:00 07/06/19 20:14 Pravachol PO 40 mg HS SYMONE Administration Saccharomyces Boulardii 250 mg 07/06/19 09:00 07/07/19 09:35 Florastor PO 250 mg DAILY SYMONE Administration - Exam General Appearance: NAD, awake alert Eye: PERRL, anicteric sclera ENT: normocephalic atraumatic, no oropharyngeal lesions Neck: supple, symmetric, no JVD, no thyromegaly Heart: RRR, no murmur, no gallops, no rubs Respiratory: CTAB, no wheezes, no rales, no ronchi, normal chest expansion Gastrointestinal: soft, non-tender, non-distended, normal bowel sounds Extremities: no cyanosis, no clubbing, no edema Skin: normal turgor, no lesions Neurological: cranial nerve grossly intact, normal sensation to touch Musculoskeletal: normal tone, normal strength Psychiatric: normal affect, normal behavior Hosp A/P (1) Recurrent UTI Code(s): N39.0 - URINARY TRACT INFECTION, SITE NOT SPECIFIED Status: Acute Plan: acute cystitis (2) Physical deconditioning Code(s): R53.81 - OTHER MALAISE Status: Acute (3) Chronic stage c diastolic heart failure Code(s): I50.32 - CHRONIC DIASTOLIC (CONGESTIVE) HEART FAILURE Status: Chronic (4) History of CVA (cerebrovascular accident) Code(s): Z86.73 - PRSNL HX OF TIA (TIA), AND CEREB INFRC W/O RESID DEFICITS Status: Chronic (5) Depression with anxiety Status: Chronic (6) GERD (gastroesophageal reflux disease) Code(s): K21.9 - GASTRO-ESOPHAGEAL REFLUX DISEASE WITHOUT ESOPHAGITIS Status: Chronic Qualifiers: Esophagitis presence: without esophagitis Qualified Code(s): K21.9 - Gastro -esophageal reflux disease without esophagitis (7) Hyperlipidemia Code(s): E78.5 - HYPERLIPIDEMIA, UNSPECIFIED Status: Chronic Qualifiers: Hyperlipidemia type: unspecified Qualified Code(s): E78.5 - Hyperlipidemia , unspecified (8) Hypertension Code(s): I10 - ESSENTIAL (PRIMARY) HYPERTENSION Status: Chronic Qualifiers: Hypertension type: essential hypertension Qualified Code(s): I10 - Essential (primary) hypertension (9) Hypothyroid Code(s): E03.9 - HYPOTHYROIDISM, UNSPECIFIED Status: Chronic Qualifiers: Hypothyroidism type: acquired Qualified Code(s): E03.9 - Hypothyroidism, unspecified (10) Parkinson disease Code(s): G20 - PARKINSON'S DISEASE Status: Chronic (11) Restless leg syndrome Status: Chronic - Plan old records reviewed/req, continue antibiotics, 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
--- NOTE | 2019-07-07 11:44 | DIS ---
DATE OF ADMISSION: 07/05/2019 DATE OF DISCHARGE: 07/07/2019 PRIMARY CARE PHYSICIAN: [facility] [place] Call admission. DISCHARGE DISPOSITION: [facility] home. PRIMARY DISCHARGE DIAGNOSIS: Urinary tract infection with cystitis. SECONDARY DISCHARGE DIAGNOSES: 1. Chronic stage C diastolic heart failure. 2. History of recurrent urinary tract infections. 3. Hypertension. 4. Physical deconditioning. 5. Anxiety and depression. 6. Gastroesophageal reflux disease. 7. History of cerebrovascular accident. 8. Dyslipidemia. 9. Parkinson disease. 10. Hypothyroidism. 11. Restless legs syndrome. PRIMARY PROCEDURE/OPERATION: None. RADIOLOGIST INVESTIGATION: CT of brain is negative. Chest x-ray is normal. SIGNIFICANT LABORATORY DATA: WBC 6.1, hemoglobin 13.7, platelets 181. Sodium 139, creatinine 0.88. Electrolytes normal. LFT normal. Troponin negative. Urinalysis suggestive of UTI. Urine culture grew E coli. DISCHARGE MEDICATIONS: New medications; 1. Macrobid 100 mg p.o. twice daily for 10 days. 2. Aspirin 81 mg daily. 3. Calcium with vitamin D 1 tablet daily. 4. Carbidopa-levodopa 1 tablet t.i.d. 5. Vitamin D3 of 1000 units p.o. daily. 6. Lasix 40 mg daily. 7. Multivitamin 1 tablet daily. 8. Protonix 40 mg daily. 9. Pramipexole 0.5 mg p.o. t.i.d. 10. Pravastatin 40 mg p.o. at bedtime. 11. Lyrica 100 mg p.o. t.i.d. 12. Cymbalta 60 mg daily. 13. Levothyroxine 125 mcg p.o. daily. 14. Lisinopril 10 mg daily. 15. Melatonin 3 mg p.o. at bedtime p.r.n. CONTRAINDICATION: None. CODE STATUS: Full code. INPATIENT RADIO COMMUNICATIONS MECHANICIAN: None. ALLERGIES: CODEINE. DISCHARGE PLAN: Posthospital, the patient is discharged back to intermediate home. Subsequently, the patient will follow up with primary care physician. HOSPITAL COURSE: This is an 84-year-old female, who has recent history of UTI and it was treated as an outpatient basis, but the patient did not have any improvement and that is why she was sent back to the hospital. We admitted to the medical floor. Her CBC, BMP, LFT, everything was normal, but her urinalysis was suggestive of UTI. Her urine culture was growing E coli and based on culture and sensitivity result, we changed to Macrobid. While in hospital, we treated her with meropenem. The patient was not treated appropriately as an outpatient basis and that is why she did not respond to treatment, but now we are discharging her with appropriate oral antibiotic therapy and the patient will be expected to improve. The patient is afebrile, hemodynamically stable. Overall, the patient is stable for discharge today, on oral antibiotic therapy. The patient is seen and examined at bedside today. Please see my progress note from today for further detail. Job ID: [id number]
[2019-07-07 11:59] VITALS: BP 154/77; TEMP 97.6
== END 2019-07-07 14:34 | DRG 690 ==
LOC: ERS 09:15 → T4-B 14:22
PROVIDERS: ADMIT Internal Medicine; ATTEND Internal Medicine
DX: N30.00 Acute cystitis without hematuria (principal); I50.32 Chronic diastolic (congestive) heart failure; G20 Parkinson's disease; I11.0 Hypertensive heart disease with heart failure; E03.9 Hypothyroidism, unspecified; G47.00 Insomnia, unspecified; E55.9 Vitamin D deficiency, unspecified; E78.5 Hyperlipidemia, unspecified; K21.9 Gastro-esophageal reflux disease without esophagitis; R53.81 Other malaise; F41.8 Other specified anxiety disorders; G25.81 Restless legs syndrome; B96.20 Unspecified Escherichia coli [E. coli] as the cause of diseases classified elsewhere; Z90.49 Acquired absence of other specified parts of digestive tract; Z90.710 Acquired absence of both cervix and uterus; Z88.5 Allergy status to narcotic agent; Z79.899 Other long term (current) drug therapy; Z86.73 Personal history of transient ischemic attack (TIA), and cerebral infarction without residual deficits
CPT/HCPCS: 36415; 36416; 70450; 71045; 80053; 81003; 81015; 82550; 84484; 85025; 87077; 87086; 87186; 93005; A4353; J1650; J2543; J3490

== ENCOUNTER 2019-07-11 21:22 | Emergency (ER) | payer MEDICARE ==
[2019-07-11 22:55] LABS: Bacteria/HPF None Seen HPF (None Seen); Bilirubin Negative (Negative); Blood, Urine Negative (Negative); Clarity Clear (Clear); Glucose, Urine (Dipstick) Normal (Negative); Leukocyte 25 Leu/uL (Negative); Nitrite Negative (Negative); Protein, Urine (Dipstick) Negative (Neg-Trace); Squamous Epithelial 0-3 HPF (0-3); Urobilinogen Normal mg/dL (Less than 2)
== END 2019-07-12 00:23 | disposition home or self-care (01) ==
LOC: ERS 21:22
DX: R41.82 Altered mental status, unspecified (principal); E03.9 Hypothyroidism, unspecified; E78.00 Pure hypercholesterolemia, unspecified; G20 Parkinson's disease; F41.9 Anxiety disorder, unspecified; Z79.82 Long term (current) use of aspirin; Z79.899 Other long term (current) drug therapy
CPT/HCPCS: 51701; 81003; 81015; A4353